=== PATIENT | male | born 1955 | race Caucasian/White ===

== ENCOUNTER 2020-06-18 10:34 | Outpatient (REF) | payer OTHER, SELFPAY | END 2020-06-18 10:35 | disposition home or self-care (01) | LOC: HO.LAB 10:34 | PROVIDERS: PCP Internal Medicine; Visit Provider Internal Medicine | DX: Z20.828 Contact with and (suspected) exposure to other viral communicable diseases (principal) | CPT/HCPCS: C9803; U0003 ==

== ENCOUNTER → 2021-04-17 08:18 | Outpatient (BNVA) | payer MEDICARE, SELFPAY | PROVIDERS: PCP Internal Medicine; Referring Provider Internal Medicine; Visit Provider Surgery | DX: K64.5 Perianal venous thrombosis (principal) | CPT/HCPCS: 46600; 99202 ==

== ENCOUNTER 2021-07-22 10:23 | Outpatient (REF) | payer MEDICARE, SELFPAY ==
[2021-07-22 10:26] LABS: MANUAL DIFF FLAG NO
[2021-07-22 11:27] LABS: Appearance Urine CLEAR; Color Urine STRAW; Glucose Urine UA NEG (NEG); Leukocyte Esterase Urine NEG (NEG); Nitrite Urine NEG (NEG); Urine Blood NEG (NEG); Urine Ketones NEG (NEG); Urine Protein NEG (NEG-TRACE)
[2021-07-22 11:38] LABS: Basophils Percent Auto 0.3 % (0-2); Eosinophils Absolute Auto 0.2 X10*3/uL (0.0-0.4); Eosinophils Percent Auto 2.2 % (0-4); Hemoglobin 15.8 g/dl (14.0-18.0); Imm Gran Abs Auto 0.03 X10*3/uL (0.00-0.03); Imm Gran Pct Auto 0.4 % (0.0-0.4); Lymphocytes Absolute Auto 2.2 X10*3/uL (1.2-4.9); Lymphocytes Percent Auto 29.9 % (20-40); Mean Corpuscular HGB Conc 33.6 g/dl (31.0-36.0); Mean Corpuscular Hemoglobin 29.3 pg (27.0-33.0); Mean Corpuscular Volume 87.2 fL (80.0-98.0); Mean Platelet Volume 12.2 fL (9.4-12.4); Monocytes Absolute Auto 0.5 X10*3/uL (0.1-1.2); Monocytes Percent Auto 7.3 % (2-11); Neutrophils Absolute Auto 4.4 x10*3/uL (2.0-8.3); Neutrophils Percent Auto 59.9 % (45-73); Platelet Count 199 X10*3/uL (160-400); Red Blood Count 5.39 X10*6/uL (4.60-5.80); Red Cell Distribution Width 12.8 % (11.0-16.0); White Blood Count 7.4 X10*3/uL (4.8-10.8)
[2021-07-22 12:22] LABS: PSA,Total (Free>4and<10) 5.08 ng/mL (0.00-4.00)
[2021-07-22 12:26] LABS: Alanine Aminotransferase 28 U/L (0-40); Albumin Level 4.5 g/dL (3.5-5.0); Alkaline Phosphatase 63 U/L (39-117); Anion Gap 15 (12-20); Aspartate Amino Transferase 25 U/L (5-37); Bilirubin Total 2.9 mg/dL (0.0-1.0); Blood Urea Nitrogen 10 mg/dL (9-16); Calcium 9.7 mg/dL (8.4-10.2); Carbon Dioxide 27 mmol/L (22-29); Chloride 101 mmol/L (96-108); Cholesterol 192 mg/dL; Estimated Glomerular Filt Rate > 60; Glucose Fasting 112 mg/dL (60-99); HDL Cholesterol 60 mg/dL; LDL Cholesterol Calculated 106 mg/dl; Potassium 3.6 mmol/L (3.3-5.1); Reflex LDLD? No; Sodium 139 mmol/L (135-145); Total Protein 7.2 g/dL (6.5-8.0); Triglycerides 132 mg/dL
[2021-07-23 11:11] LABS: Free Prostate Spec Ag 0.5 ng/mL; Percent Free Prostate Spec Ag 11 % (calc) (>25); Prostate Specific Ag Total 4.6 ng/mL (< OR = 4.0)
== END 2021-07-22 10:24 | disposition home or self-care (01) ==
LOC: HO.LNP 10:23
PROVIDERS: PCP Internal Medicine; Visit Provider Internal Medicine
DX: Z00.00 Encounter for general adult medical examination without abnormal findings (principal); Z12.5 Encounter for screening for malignant neoplasm of prostate; C61 Malignant neoplasm of prostate; E78.41 Elevated Lipoprotein(a); E78.00 Pure hypercholesterolemia, unspecified
CPT/HCPCS: 80053; 80061; 81003; 84153; 84154; 85025

== ENCOUNTER → 2022-02-23 10:40 | Outpatient (REF) | payer MEDICARE, SELFPAY ==
--- NOTE | ~2022-02-23 | NM_ITS ---
EXAMINATION: NM BONE SCAN OF THE WHOLE BODY CLINICAL INFORMATION: History of prostate cancer, presented with back pain and shoulder pain. PSA level is unknown. COMPARISON: Prior whole-body bone scan done on 10/30/2011. There are no recent scintigraphic or radiographic studies available for comparison. TECHNIQUE: Multiple gamma scintillation camera images of the whole body were performed 2.5 hours following the intravenous administration of 28 mCi Tc-99m MDP. FINDINGS: In the head, no abnormal radiotracer uptake is present. In the thoracic cage and upper extremities, mildly increased radiotracer uptake is noted at both shoulders, likely represent degenerative changes. In the spine, focal increased radiotracer activity is seen at the lower cervical spine bilaterally (right greater than left), new since prior study, likely represent degenerative changes. Radiographic correlation may be considered, if clinically appropriate. Mild increased radiotracer activities are noted at lower thoracic spine, shows progression since prior study, most consistent with degenerative spondylosis. In the pelvis, no abnormal radiotracer uptake is present. In the lower extremities, small focal increased radiotracer activity is noted within the right forefoot medially. Small focal increased radiotracer activity is also noted within the left midfoot. Radiographic correlation is recommended. Mildly increased radiotracer activities are present around both knees, most consistent with degenerative changes. No other definite bony abnormalities are noted. The urinary bladder and faint visualization of both kidneys are noted. SD/SD bone scan whole body IMPRESSION: 1. No definite scintigraphic evidence of metastatic disease, unchanged since prior remote available whole-body bone scan dated 10/30/2011. 2. Abnormal radiotracer uptake; however noted at the cervical and thoracic spine, new the cervical spine and source interval progression at the thoracic spine since the prior study, most consistent with multilevel degenerative spondylosis. Radiographic correlation may be considered for further confirmation. 3. Mild abnormal increased radiotracer uptake in both shoulders and both knees, most consistent with degenerative osteoarthrosis. 4. Focal abnormal increased uptakes seen at the right forefoot and left midfoot, may represent posttraumatic and/or degenerative changes. Clinical and radiographic correlation as appropriate may be considered for further clarification.
== END ==
LOC: HO.NUCMED 10:40
PROVIDERS: PCP Internal Medicine; Visit Provider Internal Medicine
DX: C61 Malignant neoplasm of prostate (principal)
CPT/HCPCS: 78306; A9503

== ENCOUNTER 2022-08-25 10:49 | Outpatient (REF) | payer MEDICARE, SELFPAY ==
[2022-08-25 10:53] LABS: MANUAL DIFF FLAG NO
[2022-08-25 11:27] LABS: Appearance Urine Clear; Color Urine Yellow; Glucose Urine UA Negative (Negative); Leukocyte Esterase Urine Negative (Negative); Nitrite Urine Negative (Negative); Urine Blood Negative (Negative); Urine Ketones Negative (Negative); Urine Protein Negative (Neg-Trace)
[2022-08-25 11:30] LABS: Basophils Percent Auto 0.4 % (0-2); Eosinophils Absolute Auto 0.2 X10*3/uL (0.0-0.4); Eosinophils Percent Auto 2.4 % (0-4); Hematocrit 46.4 % (42.0-52.0); Hemoglobin 15.7 g/dl (14.0-18.0); Imm Gran Abs Auto 0.03 X10*3/uL (0.00-0.03); Imm Gran Pct Auto 0.4 % (0.0-0.4); Lymphocytes Absolute Auto 2.8 X10*3/uL (1.2-4.9); Lymphocytes Percent Auto 34.1 % (20-40); Mean Corpuscular HGB Conc 33.8 g/dl (31.0-36.0); Mean Corpuscular Hemoglobin 28.7 pg (27.0-33.0); Mean Corpuscular Volume 84.8 fL (80.0-98.0); Mean Platelet Volume 11.8 fL (9.4-12.4); Monocytes Absolute Auto 0.7 X10*3/uL (0.1-1.2); Monocytes Percent Auto 8.8 % (2-11); Neutrophils Absolute Auto 4.4 x10*3/uL (2.0-8.3); Neutrophils Percent Auto 53.9 % (45-73); Platelet Count 180 X10*3/uL (160-400); Red Blood Count 5.47 X10*6/uL (4.60-5.80); Red Cell Distribution Width 13.1 % (11.0-16.0); White Blood Count 8.2 X10*3/uL (4.8-10.8)
[2022-08-25 11:31] LABS: Bacteria Urine None Seen (None Seen); Hyaline Casts Urine 0-2 /LPF (0-2); RBC Urine 0-2 /HPF (0-2); Squamous Epithelial Cell Urine 0-2 /HPF (0-2); WBC Urine 0-5 /HPF (0-5)
[2022-08-25 12:41] LABS: Alanine Aminotransferase 29 U/L (0-40); Albumin Level 4.3 g/dL (3.5-5.0); Alkaline Phosphatase 64 U/L (39-117); Anion Gap 11 (12-20); Aspartate Amino Transferase 24 U/L (5-37); Bilirubin Total 2.4 mg/dL (0.0-1.0); Blood Urea Nitrogen 18 mg/dL (9-16); Calcium 9.3 mg/dL (8.4-10.2); Carbon Dioxide 24 mmol/L (22-29); Chloride 104 mmol/L (96-108); Cholesterol 219 mg/dL; Estimated Glomerular Filt Rate > 60; Glucose Fasting 115 mg/dL (60-99); HDL Cholesterol 57 mg/dL; LDL Cholesterol Calculated 121 mg/dl; Potassium 4.1 mmol/L (3.3-5.1); Sodium 135 mmol/L (135-145); Total Protein 6.9 g/dL (6.5-8.0); Triglycerides 208 mg/dL
[2022-08-25 13:07] LABS: PSA,Total (Free>4and<10) 6.03 ng/mL (0.00-4.00)
[2022-08-26 09:28] LABS: Free Prostate Spec Ag 0.7 ng/mL; Percent Free Prostate Spec Ag 13 % (calc) (>25); Prostate Specific Ag Total 5.5 ng/mL (< OR = 4.0)
== END 2022-08-25 10:50 | disposition home or self-care (01) ==
LOC: HO.LNP 10:49
PROVIDERS: Visit Provider Internal Medicine
DX: Z00.00 Encounter for general adult medical examination without abnormal findings (principal); Z12.5 Encounter for screening for malignant neoplasm of prostate; E78.00 Pure hypercholesterolemia, unspecified
CPT/HCPCS: 80053; 80061; 81001; 84153; 84154; 85025

== ENCOUNTER 2023-03-19 11:25 | Day surgery (SDC) | payer MEDICARE, SELFPAY ==
--- NOTE | 2023-03-18 12:13 | HO.ANESPROP2 ---
HPI - Anesthesia Eval Consult details Narrative: 67yo M for Colonoscopy PMFSH Active Problems Active Problems: All Active Problems (Updated 05/16/21 @ 11:51 by Dodie Morejon RN) Hemorrhoid (Acute) Thrombosed hemorrhoids (Acute) BPH (benign prostatic hyperplasia) (Acute) Past Medical History Medical History (Updated 03/18/23 @ 12:56 by Lona Chowdhury, RN) Arthritis BPH (benign prostatic hyperplasia) History of prostate cancer IBS (irritable bowel syndrome) Numbness and tingling in right hand Thrombosed hemorrhoids Surgical History Surgical History History of cervical spinal surgery History of elbow surgery History of nasal surgery History of umbilical hernia repair Hx of abdominal surgery Hx of colonoscopy Hx of esophagogastroduodenoscopy Social History Social History Patient Tobacco Use Status: Never used Tobacco Use of substances other than those prescribed or required for medical reasons: Yes Substance Use Frequency: Occasionally Are you DNR?: No Advance Directives: No Advance Directives Information Provided: Yes Meds Allergies Allergy/AdvReac Type Severity Reaction Status Date / Time No Known Allergies Allergy Verified 03/19/23 11:38 [No Known Allergies*] Home Medications Medication Instructions Recorded Confirmed Last Taken Type cholestyramine (with sugar) 4 gram 4 g PO DAILY 04/11/21 03/19/23 Unknown History oral powder (Questran) finasteride 5 mg tablet (Proscar) 5 mg PO DAILY 04/11/21 03/19/23 Unknown History tamsulosin 0.4 mg capsule (Flomax) 0.4 mg PO BID 04/11/21 03/19/23 Unknown History celecoxib 200 mg capsule 200 mg PO BID 03/18/23 03/19/23 Unknown History Exam Exam Date and Time: March 18, 2023 1213 Assessment and Plan Assessment Anesthesia Assessment: Chart Reviewed
[2023-03-19 11:39] VITALS: BMI 25.7
[2023-03-19 12:00] VITALS: BP 159/105; PULSE 76; RESP 15; TEMP 36.6; O2SAT 95
[2023-03-19] MEDS: Lactated Ringers 1,000 ML 100 ML IVCONT (12:10)
[2023-03-19 13:31] VITALS: BP 131/89; PULSE 71; RESP 16; TEMP 36.1; O2SAT 99
--- NOTE | 2023-03-19 13:33 | P.BOP_ITS ---
Brief Operative Note Date of Service: 03/19/23 Pre-op diagnosis: Screening Post-op diagnosis: other (Polyps) Procedure: Colonoscopy to the anastomosis and SI with bx/removal of polyps x 2 Surgeon: Cody Israel Anesthesia: MAC Was an Bilingual Call Center Representative used for this Procedure?: No Estimated blood loss (mL): 2.0 Pathology: other (A. Colon polyps at 70cm, just distal to the anastomosis) Condition: stable Disposition: PACU
[2023-03-19 13:49] VITALS: BP 163/99; PULSE 66; RESP 18; TEMP 36.1; O2SAT 97
--- NOTE | 2023-03-19 14:30 | OP_ITS ---
DATE OF SERVICE: 03/19/2023 SURGEON: Cody Israel MD INDICATIONS: The patient presents for followup of personal history of colon polyps and need for colorectal cancer screening. Full consent has been obtained from him for this, including risks of bleeding and perforation. PREOPERATIVE DIAGNOSIS: POSTOPERATIVE DIAGNOSIS: PROCEDURE PERFORMED: Colonoscopy to the anastomosis and small bowel with biopsy and removal of polyps. ESTIMATED BLOOD LOSS: COMPLICATIONS: ANESTHESIA: Monitored anesthesia care. ASSISTANTS: SPECIMENS: PREOPERATIVE DIAGNOSES: Personal history of colon polyps and colorectal cancer screening. POSTOPERATIVE DIAGNOSES: Personal history of colon polyps and colorectal cancer screening, colon polyps, normal anastomosis, mild sigmoid diverticulosis, small internal hemorrhoids. DESCRIPTION OF PROCEDURE: The patient was placed in the left lateral decubitus position. The digital rectal exam revealed no abnormalities. The Olympus video pediatric colonoscope was entered into the rectum and advanced to the level of the anastomosis with abdominal wall pressure. I was able to cannulate the small bowel, which appeared normal. The scope was withdrawn back in the colon. The anastomosis appeared normal. The scope was slowly withdrawn assessing all mucosal surfaces carefully. Preparation was excellent. At 70 cm, which was just distal to the anastomosis, were 2 flat less than 5 mm polyps. These were both biopsied and completely removed with a cold biopsy forceps. I did not visualize any other polyps, colitis, nor angiodysplasia. There was a mild amount of sigmoid diverticulosis. In the rectum, scope was retroflexed visualizing small internal hemorrhoids, but no other pathology. The rectal mucosa appeared normal. The scope was straightened and withdrawn from the patient. He tolerated the procedure well and was returned to the recovery area in stable condition. IMPRESSION: 1. Small colon polyps, status post biopsy and removal. 2. Sigmoid diverticulosis. 3. Internal hemorrhoids. PLAN: I would recommend a repeat colonoscopy in 5 years for further screening purposes given the minimal findings in 2019 and today. He was advised not to use any aspirin or NSAIDs for 1 week. He was advised to continue his cholestyramine to help with his bile-induced diarrhea. He will otherwise see me on a p.r.n. basis. MD ADDY Nava/GUERLINE / [phone] MTDFerny
== END 2023-03-19 14:15 | disposition home or self-care (01) ==
PROVIDERS: PCP Internal Medicine; Visit Provider Internal Medicine
PROC: 0DJD8ZZ Inspection of Lower Intestinal Tract, Via Natural or Artificial Opening Endoscopic (ICD-10-PCS; CPT 45378; principal; 2023-03-19 12:30)
DX: Z12.11 Encounter for screening for malignant neoplasm of colon (principal); Z86.010 Personal history of colon polyps; D12.4 Benign neoplasm of descending colon; K57.30 Diverticulosis of large intestine without perforation or abscess without bleeding; K64.8 Other hemorrhoids; K90.89 Other intestinal malabsorption; N40.0 Benign prostatic hyperplasia without lower urinary tract symptoms; Z79.899 Other long term (current) drug therapy; Z85.46 Personal history of malignant neoplasm of prostate; Z90.49 Acquired absence of other specified parts of digestive tract; Z98.0 Intestinal bypass and anastomosis status; Z98.890 Other specified postprocedural states
CPT/HCPCS: 45380; 88305

== ENCOUNTER 2023-08-26 10:43 | Outpatient (REF) | payer MEDICARE, SELFPAY ==
[2023-08-26 10:46] LABS: MANUAL DIFF FLAG NO
[2023-08-26 11:21] LABS: Basophils Percent Auto 0.5 % (0-2); Eosinophils Absolute Auto 0.1 X10*3/uL (0.0-0.4); Eosinophils Percent Auto 2.1 % (0-4); Hematocrit 46.4 % (42.0-52.0); Hemoglobin 15.6 g/dl (14.0-18.0); Imm Gran Abs Auto 0.02 X10*3/uL (0.00-0.03); Imm Gran Pct Auto 0.3 % (0.0-0.4); Lymphocytes Absolute Auto 2.2 X10*3/uL (1.2-4.9); Lymphocytes Percent Auto 35.5 % (20-40); Mean Corpuscular HGB Conc 33.6 g/dl (31.0-36.0); Mean Corpuscular Hemoglobin 29.5 pg (27.0-33.0); Mean Corpuscular Volume 87.7 fL (80.0-98.0); Mean Platelet Volume 12.4 fL (9.4-12.4); Monocytes Absolute Auto 0.6 X10*3/uL (0.1-1.2); Monocytes Percent Auto 9.6 % (2-11); Neutrophils Absolute Auto 3.2 x10*3/uL (2.0-8.3); Platelet Count 175 X10*3/uL (160-400); Red Blood Count 5.29 X10*6/uL (4.60-5.80); Red Cell Distribution Width 13.2 % (11.0-16.0); White Blood Count 6.2 X10*3/uL (4.8-10.8)
[2023-08-26 11:23] LABS: Appearance Urine Clear; Color Urine Yellow; Glucose Urine UA Negative (Negative); Leukocyte Esterase Urine Negative (Negative); Nitrite Urine Negative (Negative); Urine Blood Negative (Negative); Urine Ketones Negative (Negative); Urine Protein Negative (Neg-Trace)
[2023-08-26 11:28] LABS: Bacteria Urine None Seen (None Seen); Hyaline Casts Urine 0-2 /LPF (0-2); RBC Urine 0-2 /HPF (0-2); Squamous Epithelial Cell Urine 0-2 /HPF (0-2); WBC Urine 0-5 /HPF (0-5)
[2023-08-26 11:40] LABS: Alanine Aminotransferase 22 U/L (0-40); Albumin Level 4.3 g/dL (3.5-5.0); Alkaline Phosphatase 72 U/L (39-117); Anion Gap 11 (12-20); Aspartate Amino Transferase 23 U/L (5-37); Bilirubin Total 2.3 mg/dL (0.0-1.0); Blood Urea Nitrogen 13 mg/dL (9-16); Calcium 9.6 mg/dL (8.4-10.2); Carbon Dioxide 30 mmol/L (22-29); Chloride 102 mmol/L (96-108); Cholesterol 210 mg/dL (<200); Estimated Glomerular Filt Rate > 60; Glucose Random 121 mg/dL (60-115); HDL Cholesterol 54 mg/dL (>40); LDL Cholesterol Calculated 123 mg/dL (<100); Potassium 3.7 mmol/L (3.3-5.1); Sodium 139 mmol/L (135-145); Total Protein 7.2 g/dL (6.5-8.0); Triglycerides 166 mg/dL (<150)
[2023-08-27 12:24] LABS: Free Prostate Spec Ag 0.5 ng/mL; Percent Free Prostate Spec Ag 8 % (calc) (>25); Prostate Specific Ag Total 6.3 ng/mL (< OR = 4.0)
== END 2023-08-26 10:44 | disposition home or self-care (01) ==
LOC: HO.LNP 10:43
PROVIDERS: Visit Provider Internal Medicine
DX: Z00.00 Encounter for general adult medical examination without abnormal findings (principal); Z12.5 Encounter for screening for malignant neoplasm of prostate; E78.00 Pure hypercholesterolemia, unspecified
CPT/HCPCS: 80053; 80061; 81001; 84153; 84154; 85025

== ENCOUNTER 2024-03-07 10:54 | Outpatient (AMB) | payer MEDICARE, SELFPAY ==
--- NOTE | 2024-03-07 11:08 | MHC.OFFVIS ---
Intake Visit Reasons: Re-Establish care- Prostate CA/BPH(PVU Transfer) Intake Note: Patient is present for RE-ESTABLISH CARE-PROSTATE CA/BPH Urology Medication:TAMSULOSIN,FINASTERIDE Antibiotic Allergy:NONE Blood Thinner:NONE Infrastructure Analyst Required: No Allergies No Known Allergies [No Known Allergies*] Allergy (Verified 03/07/24 11:11) HPI Comments Details: Evelio is a pleasant male. He is a patient of Dr. Ramos. He is seen for the following urologic conditions - prostate cancer Prostate cancer PSA diagnosis 12 Has been on active surveillance Currently treated with finasteride and tamsulosin Multiple biopsies MRI has been performed which showed confined disease - 03/27 prostate MRI PI-RADS 3 He would like to continue with current approach Would recommend interval imaging and biopsy PSA - 04/01 7.4 %F 8 PFSH Medical History (Updated 03/07/24 @ 12:04 by Eze Delgado MD) IBS (irritable bowel syndrome) Numbness and tingling in right hand History of prostate cancer Arthritis Thrombosed hemorrhoids BPH (benign prostatic hyperplasia) Surgical History Hx of esophagogastroduodenoscopy History of cervical spinal surgery Hx of colonoscopy History of elbow surgery History of nasal surgery History of umbilical hernia repair Hx of abdominal surgery Social History Patient Tobacco Use Status: Never used Tobacco Review of Systems Const Denies chills and Denies fever(s) Card Reports no additional complaints and Denies syncope Resp Denies cough GI Denies abdominal pain and Denies heartburn Reports as per HPI and Denies change in libido Neuro Denies syncope Psych Denies change in libido Endo Denies change in libido Physical Exam Const General: cooperative, healthy appearing, comfortable and no acute distress Orientation/consciousness: patient oriented x3 HEENT Face and sinus: Yes normal facial exam Mouth: moist mucous membranes Neck Neck: Yes normal visual inspection, Yes full ROM and Yes trachea midline Chest Chest palpation & inspection: normal inspection of the chest Resp Effort & Inspection: normal respiratory effort, able to speak in complete sentences and no respiratory distress GI Inspection: Yes normal to inspection Back/Spine/Pelvis Cervical Spine: normal cervical lordosis Thoracic/Lumbar Spine: thoracic and lumbar spine normal to inspection Skin General skin exam: no rashes or lesions noted Neuro General: patient oriented x3, gait normal, tone normal and moves all extremities Extrem General: Yes normal to inspection and Yes capillary refill normal Results AMB Urinalysis, Automated UA Leukoctes 0 Joni/uL Last Edit by BARBARA Beaulieu on 03/07/24 11:45 UA Nitrite Negative Last Edit by Sarbjit Stover CCM on 03/07/24 11:45 UA Urobilinogen 0.2 mg/dL Last Edit by Sarbjit Stover CCM on 03/07/24 11:45 UA Protein 15 mg/dL Last Edit by Sarbjit Stover [facility] on 03/07/24 11:45 UA pH 6.0 Last Edit by Sarbjit Stover [facility] on 03/07/24 11:45 UA Blood 0 Mike/uL Last Edit by Sarbjit Stover [facility] on 03/07/24 11:45 UA Specific [place] 1.015 Last Edit by Sarbjit Stover [facility] on 03/07/24 11:45 UA Ketone Negative Last Edit by Sarbjit Stover [facility] on 03/07/24 11:45 UA Bilirubin 0 mg/dL Last Edit by Sarbjit Stover [facility] on 03/07/24 11:45 UA Glucose 0 mg/dL Last Edit by Sarbjit Stover [facility] on 03/07/24 11:45 Results Reviewed Results Reviewed: Laboratory Last Values Urine pH (Auto) 6.0 03/07/24 11:44 Specific [place] (Auto) 1.015 03/07/24 11:44 Urine Protein (Auto) 15 mg/dL 03/07/24 11:44 Glucose (UA)(Auto) 0 mg/dL 03/07/24 11:44 Urine Ketones (Auto) Negative 03/07/24 11:44 Urine Blood (Auto) 0 Mike/uL 03/07/24 11:44 Urine Nitrite (Auto) Negative 03/07/24 11:44 Urine Bilirubin (Auto) 0 mg/dL 03/07/24 11:44 Urine Urobilinogen (Auto) 0.2 mg/dL 03/07/24 11:44 Leukocyte Esterase (Auto) 0 Joni/uL 03/07/24 11:44 Assessment & Plan Assessment & Plan (1) Prostate cancer: Code(s): C61 - Malignant neoplasm of prostate Category: Medical Plan Six-month follow-up PSA Interval imaging Orders: Orders AMB Urinalysis Automated 03/07/24 Z13.9 - Encounter for screening, unspecified Patient Instructions: Imaging studies, laboratory and physical exam results were discussed and reviewed in detail. No major barriers to patient understanding were identified. An opportunity to ask questions regarding the treatment plan was provided. All questions were answered. The patient expressed understanding and agreement with the above treatment plan. The patient is aware they should contact our office by phone for worsening of their current condition or the appearance of new urologic symptoms. Compliance is encouraged with any medications and followup testing that is ordered. It is a privilege to participate in the urologic care of your patient. If you have any questions or concerns regarding treatment for the above conditions, or other urologic issues, please do not hesitate to contact me. The office telephone contact is [phone]. This note is constructed using voice recognition software. While every effort has been made to ensure accuracy shank pinner errors may have been included. Yours sincerely, Dr Eze Delgado MD, [facility] - Urology Providers of Expert, Compassionate Care for the Genitourinary System Coding Level of Care Code New Pt Level 4 (44614) Diagnoses Prostate cancer C61
== END 2024-03-07 12:12 | disposition home or self-care (01) ==
PROVIDERS: PCP Internal Medicine; Visit Provider Urology
DX: C61 Malignant neoplasm of prostate (principal)
CPT/HCPCS: 99204

== ENCOUNTER → 2024-03-07 10:54 | Outpatient (BNVA) | payer MEDICARE, SELFPAY | PROVIDERS: PCP Internal Medicine; Visit Provider Urology | DX: C61 Malignant neoplasm of prostate (principal) | CPT/HCPCS: 81003; 99202 ==

== ENCOUNTER 2024-03-09 09:48 | Outpatient (REF) | payer MEDICARE, SELFPAY ==
[2024-03-09 11:28] LABS: Prostate Specific Antigen 7.43 ng/mL (<0.05-4.0)
== END 2024-03-09 09:49 | disposition home or self-care (01) ==
LOC: HO.LAB 09:48
PROVIDERS: PCP Internal Medicine; Visit Provider Urology
DX: C61 Malignant neoplasm of prostate (principal); Z12.5 Encounter for screening for malignant neoplasm of prostate
CPT/HCPCS: 36415; 84153

== ENCOUNTER 2024-08-29 10:49 | Outpatient (REF) | payer MEDICARE, SELFPAY ==
[2024-08-29 10:52] LABS: MANUAL DIFF FLAG NO
[2024-08-29 11:01] LABS: Basophils Percent Auto 0.4 % (0-2); Eosinophils Absolute Auto 0.1 X10*3/uL (0.0-0.4); Hematocrit 47.9 % (42.0-52.0); Hemoglobin 16.2 g/dl (14.0-18.0); Imm Gran Abs Auto 0.02 X10*3/uL (0.00-0.03); Imm Gran Pct Auto 0.3 % (0.0-0.4); Lymphocytes Absolute Auto 2.2 X10*3/uL (1.2-4.9); Lymphocytes Percent Auto 32.3 % (20-40); Mean Corpuscular HGB Conc 33.8 g/dl (31.0-36.0); Mean Corpuscular Volume 85.8 fL (80.0-98.0); Monocytes Absolute Auto 0.5 X10*3/uL (0.1-1.2); Monocytes Percent Auto 7.6 % (2-11); Neutrophils Percent Auto 57.4 % (45-73); Platelet Count 188 X10*3/uL (160-400); Red Blood Count 5.58 X10*6/uL (4.60-5.80); Red Cell Distribution Width 13.2 % (11.0-16.0); White Blood Count 6.9 X10*3/uL (4.8-10.8)
[2024-08-29 11:31] LABS: Alanine Aminotransferase 21 U/L (0-40); Albumin Level 4.5 g/dL (3.5-5.0); Alkaline Phosphatase 71 U/L (39-117); Anion Gap 11 (12-20); Aspartate Amino Transferase 28 U/L (5-37); Bilirubin Total 2.4 mg/dL (0.0-1.0); Blood Urea Nitrogen 13 mg/dL (9-16); Calcium 8.9 mg/dL (8.4-10.2); Carbon Dioxide 29 mmol/L (22-29); Chloride 104 mmol/L (96-108); Cholesterol 187 mg/dL (<200); Estimated Glomerular Filt Rate > 60; Glucose Fasting 108 mg/dL (60-99); HDL Cholesterol 57 mg/dL (>40); LDL Cholesterol Calculated 107 mg/dL (<100); Potassium 3.6 mmol/L (3.3-5.1); Sodium 140 mmol/L (135-145); Total Protein 7.7 g/dL (6.5-8.0); Triglycerides 116 mg/dL (<150)
[2024-08-29 11:39] LABS: PSA,Total (Free>4and<10) 7.27 ng/mL (0.00-4.00)
--- OUTSIDE RECORDS SUMMARY | 2024-08-29 12:25 | XMS_ITS ---
Author Organization [facility] Address [address] [place] [address] Care Team Providers Care Computer Security Specialist Name Role Phone Rachel PARKINSON, Margarito Primary Care Provider uJstin Burnham Unavailable [phone] Encounters Encounter Location Date Provider Diagnosis [facility] [address] [place] [address] 05/01/2024 Justin Galdamez Plan Of Treatment No Information Progress Notes * Dani ESPINODOB:1955 (68 yo M)Acc No.[id number]:05/01/2024 Progress Notes Patient:?Dani ESPINO Provider:?Justin Galdamez DPM :1955???Age:68 Y???Sex:Male Bharath e:05/01/2024 Address:[address] [place] [address] , [address], [facility] Pcp:Margarito Ramos MD Subjective: * Chief Complaints: * ??? * Medical History:? Objective: * Vitals:? Assessment: Plan: * Treatment: * Images: * The named appointment provid er may or may not be the originator of this progress note, and it is not deemed complete until electronically signed by the appointment provider. Sign off status: Pending * Provider:?Justin Galdamez DPM Date:? 024 Generated for Carolina perez/Alejandro/eTransmitting on:?08/29/2024 12:25 PM EST
--- OUTSIDE RECORDS SUMMARY | 2024-08-29 12:25 | XMS_ITS | Clinical Summary ---
Author Organization [facility] Address [address] [place] [address] Care Team Providers Care Entry Driver Operator Name Role Phone Unavailable Primary Care Provider Unavailabl e Social History Tobacco Use Types Packs/Day Years Used Date Smoking Tobacco: Never Assessed Sex and Gender Information Value Date Recorded Sex Assigned at Not on file Gender Identity Not on file Sexual Orientation Not on file Plan of Treatment Health Maintenance Due Date Last Done Comments Hepatitis C Virus Screening 1955 DTaP/Tdap/Td Vaccines (1 - Tdap) 11/24/1974 Pneumococcal Vaccines 50+ (1 of 1 - PCV) 11/24/2005 Zoster (Shingles) Vaccine (1 of 2) 11/24/2005 COVID-19 Vaccine ( - 2023-2 5 season) 2024 RSV Vaccine 60 years and old er and Patients (1 - 1-dose 75+ series) 11/24/2030 Hepatitis B Vaccines Aged Out No long er eligible based on patient's age to complete this topic
--- OUTSIDE RECORDS SUMMARY | 2024-08-29 12:25 | XMS_ITS ---
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 Generated for Carolina perez/Alejandro/eTransmitting on:?08/29/2024 12:25 PM EST
--- OUTSIDE RECORDS SUMMARY | 2024-08-29 12:25 | XMS_ITS | Patient Health Record ---
Author Organization [facility] Address [address] [place] [address] Care Team Providers Care Gunner'S Mate M Name Role Phone Margarito Ramos MD Primary Care Provider Justin Burnham [phone] Reason For Referral No Information Encounters Encounter Location Date Provider Diagnosis [facility] [address] [place] [address] 04/04/2024 Justin Galdamez Plan Of Treatment No Information Insurance Providers Payer Name Payer Address Payer Phone Subscriber Number Group Number Insured Name Patient Relationship to Insured Coverage Start Date Coverage End Date [employer] Medicare [id number] [address] [address] [place] [address] [id number] Dani Rosas Self - patient is the insured
[2024-08-30 17:53] LABS: Free Prostate Spec Ag 0.7 ng/mL; Percent Free Prostate Spec Ag 9 % (calc) (>25); Prostate Specific Ag Total 7.4 ng/mL (< OR = 4.0)
== END 2024-08-29 10:50 | disposition home or self-care (01) ==
LOC: HO.LNP 10:49
PROVIDERS: Visit Provider Internal Medicine
DX: E78.00 Pure hypercholesterolemia, unspecified (principal); Z12.5 Encounter for screening for malignant neoplasm of prostate
CPT/HCPCS: 80053; 80061; 84153; 84154; 85025

== ENCOUNTER 2024-09-05 15:21 | Outpatient (REF) | payer MEDICARE, SELFPAY ==
[2024-09-05 15:27] LABS: Appearance Urine Clear; Color Urine Yellow; Glucose Urine UA Negative (Negative); Leukocyte Esterase Urine Negative (Negative); Nitrite Urine Negative (Negative); PH 6.5 (5.0-9.0); Specific Gravity - Urine 1.015 (1.005-1.025); Urine Blood Negative (Negative); Urine Ketones Negative (Negative); Urine Protein Negative (Neg-Trace)
[2024-09-05 15:30] LABS: Bacteria Urine None Seen (None Seen); Hyaline Casts Urine 0-2 /LPF (0-2); RBC Urine 0-2 /HPF (0-2); Squamous Epithelial Cell Urine 0-2 /HPF (0-2); WBC Urine 0-5 /HPF (0-5)
--- OUTSIDE RECORDS SUMMARY | 2024-09-05 16:19 | XMS_ITS ---
Author Organization [facility] Address [address] [place] [address] Care Team Providers Care Clinical Nursing Coordinator Name Role Phone Rachel PARKINSON, Margarito Primary Care Provider Justin Burnham Unavailable [phone] Encounters Encounter Location Date Provider Diagnosis [facility] [address] [place] [address] 05/01/2024 Justin Galdamez Plan Of Treatment No Information Progress Notes * Dani ESPINODOB:1955 (68 yo M)Acc No.[id number]:05/01/2024 Progress Notes Patient:?Dani ESPINO Provider:?Justin Galdamez DPM :1955???Age:68 Y???Sex:Male Bharath e:05/01/2024 Address:[address] [place] [address] , [address], [facility] Pcp:Margarito Ramos MD Subjective: * Chief Complaints: * ??? * Medical History:? Objective: * Vitals:? Assessment: Plan: * Treatment: * Images: * The named appointment provid er may or may not be the originator of this progress note, and it is not deemed complete until electronically signed by the appointment provider. Sign off status: Pending * Provider:?Justin Galdamez DPM Date:? 024 Generated for Shawi chris/Alejandro/eTransmitting on:?09/05/2024 04:18 PM EST
--- OUTSIDE RECORDS SUMMARY | 2024-09-05 16:19 | XMS_ITS ---
Author Organization Margarito Ramos MD Address [address] [place], [place] [id number] Care Team Providers Care Reclamation Kettle Tender Name Role Phone Margarito Ramos Primary Care Provider Results Component Value Reference Range Notes Complete Blood Count Auto Di ff Reviewed date:08/29/2024 04:38:19 PM Interpretation: Performing Lab:[facility], [address] [place] [phone] Notes/Report: White Blood Count 6.9 4.8-10.8 X10*3/uL Red Blood Count 5.58 4.60-5.80 X10*6/uL Hemoglobin 16.2 14.0-18.0 g/dl Hematocrit 47.9 42.0-52.0 % Mean Corpuscular Volume 85.8 80.0-98.0 fL Mean Corpuscular Hemoglobin 29.0 27.0-33.0 pg Mean Corpuscular HGB Conc 33.8 31.0-36.0 g/dl Red Cell Distribution Width 13.2 11.0-16.0 % Platelet Count 188 160-400 X10*3/uL Mean Platelet Volume 12.0 9.4-12.4 fL Neutrophils Percent Auto 57.4 45-73 % Imm Gran Pct Auto 0.3 0.0-0.4 % Lymphocytes Percent Auto 32.3 20-40 % Monocytes Percent Auto 7.6 2-11 % Eosinophils Percent Auto 2.0 0-4 % Basophils Percent Auto 0.4 0-2 % NRBC Pct Auto 0.0 0.0-0.2 /100WBC Neutrophils Absolute Auto 4.0 2.0-8.3 x10*3/u L Imm Gran Abs Auto 0.02 0.00-0.03 X10*3/uL Lymphocytes Absolute Auto 2.2 1.2-4.9 X10*3/u L Monocytes Absolute Auto 0.5 0.1-1.2 X10*3/uL Eosinophils Absolute Auto 0.1 0.0-0.4 X10*3/u L Basophils Absolute Auto 0.0 0.0-0.2 X10*3/uL NRBC Abs Auto 0.000 0.0-0.012 X10*3/uL Comprehensive [place]. Panel Fa st Reviewed date:08/29/2024 04:31:00 PM Interpretation: Performing Lab:[facility], [address] [place] [phone] Notes/Report: Sodium 140 135-145 mmol/L Potassium 3.6 3.3-5.1 mmol/L Slight Hemoly sis.Interpret result with caution. Chloride 104 96-108 mmol/L Carbon Dioxide 29 22-29 mmol/L Anion Gap 11 12-20 Blood Urea Nitrogen 13 9-16 mg/dL Creatinine 0.91 0.5-1.4 mg/dL Estimated Glomerular Filt Rate > 60 Chronic Kidney Disease: Estimated GFR < 60 mL/min/1.73m2 Severe Kidney Disease: Estimated GFR < 15 mL/min/1.73m2 Glucose Fasting 108 60-99 mg/dL A fasting glucose from 100-125 mg/dl is considered impaired (pre-diabetes). Calcium 8.9 8.4-10.2 mg/dL Bilirubin Total 2.4 0.0-1.0 mg/dL Slight Icte brandi. Aspartate Amino Transferase 28 5-37 U/L Slight Hemolysis.Interpret result with caution. Alanine Aminotransferase 21 0-40 U/L Total Protein 7.7 6.5-8.0 g/dL Albumin Level 4.5 3.5-5.0 g/dL Alkaline Phosphatase 71 39-117 U/L Lipid Panel Reviewed date:08/29/2024 12:37:39 PM Interpretation: Performing Lab:[facility], [address] [place] [phone] Notes/Report: Triglycerides 116 <150 mg/dL Desirable Triglyceride: less than 150 mg/dL Borderline High Triglyceride 150-199 mg/dL High Triglyceride: 200-499 mg/dL Very High Triglyceride: greater than or equal to 5OO mg/dL Cholesterol 187 <200 mg/dL Desirable Cholesterol: less than 200 mg/dL Borderline High Cholesterol: 200-239 mg/dL High Cholesterol: greater than 239 mg/dL LDL Cholesterol Calculated 107 <100 mg/dL Desirable LDL: less than 100 mg/dL Near Optimal/Above Optimal LDL: 110-129 mg/dL Borderline High LDL: 130-159 mg/dL High LDL: 160-189 mg/dL Very High LDL: greater than or equal to 190 mg/dL HDL Cholesterol 57 >40 mg/dL Desirable HDL: greater than 40 mg/dL Note: This HDL assay may give artificially low results in patients with liver disease. PSA,Total (Free>4and<10) Reviewed date:08/29/2024 12:38:40 PM Interpretation: Performing Lab:[facility], [address] [place] [phone] Notes/Report: PSA,Total (Free>4and<10) 7.27 0.00-4.00 ng/mL PSA methodology: Parada Alinity i Chemiluminescent Microparticle Immunoassay (CMIA) REASON FOR VISIT FASTING LABS Encounters Encounter Location Date Provider Diagnosis Margarito Ramos MD [address] [place], [place] [phone] 08/29/2024 Margarito Ramos Blood tests for routine general physical examination Z00.00 and Pure hypercholesterolemia , unspecified E78.00 Assessments Encounter Date Diagnosis (ICD Code) Assessment Notes Treatment Notes Treatment Clinical Notes Section Notes 08/29/2024 Blood tests for routine general physical examination (ICD-10 - Z00.00) 08/29/2024 Pure hypercholesterol emia, unspecified (ICD-10 - E78.00) Plan Of Treatment Pending Test Test Name [facility] 08/29/2024 Next Appt Details Provider Name:Margarito Phoenix ier, 08/31/2025 07:45:00 AM, [address], [address], [place], [phone], Provider Name:Margarito Phoenix ier, 09/07/2025 01:00:00 PM, [address] [facility], [address], [place], [place], [phone], Progress Notes * Dani ESPINO FDOB:[birth year] (68 yo M)Acc No.[id number]:08/29/2024 Progress Note Patient:?Dani ESPINO Provider:?Margarito Ramos MD :1955???Age:68 Y???Sex:Male Bharath e:08/29/2024 Address:[address] [place], [place] [id number] Subjective: * Chief Complaints: * ???1. FASTING LABS. * Medical History:? Objective: * Vitals:? Assessment: * Assessment: 1.?Blood tests for routine g eneral physical examination - Z00.00 (Primary)???2.?Pure hypercholesterolemia, unspecified - E78.00??? Plan: * Treatment: 2.?Pure hypercholesterolemia , unspecified?LAB: [facility]Micro w/rflx Cult ?LAB: Complete Blood Count Auto Diff (Collection Date & Time - 08/29/2024 07:45 AM) ?LAB: Comprehensive [place]. Panel Fast (Collection Date & Time - 08/29/2024 07:45 AM) ?LAB: Lipid Panel (Collection Date & Time - 08/29/2024 07:45 AM) ?LAB: PSA,Total (Free>4and<10) (Collection Date & Time - 08/29/2024 07:45 AM) * Procedure Codes:?15540 VENIP UNCT, ROUTINE* * * The named appointment provid er may or may not be the originator of this progress note, and it is not deemed complete until electronically signed by the appointment provider. Sign off status: Pending * Provider:?Margarito Ramos MD Date:?0 08/29/2024 Generated for Carolina perez/Alejandro/lAex on:?09/05/2024 04:19 PM EST
--- OUTSIDE RECORDS SUMMARY | 2024-09-05 16:19 | XMS_ITS | Patient Health Record ---
Author Organization [facility] Address [address] [place] [address] Care Team Providers Care Phys Therapist Name Role Phone Margarito Ramos MD Primary Care Provider Cody Hackett Unavailable [phone] ALLERGIES No Known Allergies REASON FOR REFERRAL No Information MEDICATIONS Medication SIG (Take, Route, Frequency, Duration) Notes Start Date End Date Status Cholestyramine 4 GM/DOSE USE 1/4 TO 1/2 SCOOP MIXED IN A GLASS OF WATER OR ORANGE JUICE ORALLY 1-2X FOR DIARRHEA 30 DAY(S) for 30 Active Celecoxib 200 MG TAKE 1 CAPSULE BY [facility] TWICE DAILY Oral for 90 Active Finasteride 5 MG 1 tablet Orally Once a day Active Tamsulosin HCl 0.4 MG 1 capsule Orally Once a day Active IMMUNIZATIONS Vaccine Route Administration Date Status Comme nts Influenza Unknown 05/09/2018 Administered Influenza Unknown 05/10/2019 Administered Influenza Unknown 05/26/2022 Administered SOCIAL HISTORY Sex Assigned At : Social History Observation Description Sex Assigned At Unknown Alcohol Screen Question Answer Notes Did you have a drink contain ing alcohol in the past year? Yes How often did you have a dri nk containing alcohol in the past year? 2 to 3 times a week (3 points) How many drinks did you have on a typical day when you were drinking in the past year? 1 or 2 drinks (0 point) How often did you have 6 or more drinks on one occasion in the past year? Never (0 point) Points 3 Interpretation Negative PROBLEMS Problem Type ICD Code Onset Dates Problem Status W/U Status Risk SNOMED Code Notes Problem Irregular bowel habits (R19.8) Active confirmed 780957192 Problem Irritable bowel syndrome with both constipation and diarrhea (K58.2) Active confirmed 63298025 Problem Encounter for screening for malignant neoplasm of colon (Z12.11) Active confirmed 654996147 Problem Encounter for screening for malignant neoplasm of rectum (Z12.12) Active confirmed Screening fo r malignant neoplasm of rectum (110727665) Problem Abdominal pain, epigastric (R10.13) Active confirmed 58407429 Problem Villous adenoma of colon (D37.4) Active confirmed 798684107 Problem Hx of adenomatous colonic polyps (Z86.010) Active confirmed 701012964 Problem Heme + stool (R19.5) Active confirmed 71892984 Problem Diarrhea, unspecified type (R19.7) Active confirmed 14387171 Problem 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 confirmed 69658147 Problem Hx of Billroth II operation (Z98.0) Active confirmed History of gastrointestinal tract bypass (054340332) Problem Diverticulosis of colon (K57.30) Active confirmed Diverticulosi s of colon (916173131) PLAN OF TREATMENT Pending Test Test Name Order Date XR ABD UPRIGHT AND CHEST 04/04/2020 STOOL WBC 04/04/2020 Future Test Test Name Order Date UPPER GI ENDOSCOPY 08/11/2016 COLONOSCOPY 08/11/2016 COLONOSCOPY 11/10/2016 COLONOSCOPY 09/08/2018 COLONOSCOPY 01/01/2023 Insurance Providers Payer Name Payer Address Payer Phone Subscriber Number Group Number Insured Name Patient Relationship to Insured Coverage Start Date Coverage End Date [facility] [employer] [address] [place] [address] [id number] MARK ANTHONY RODRIGUEZ Self - patient is the insured MEDICAL (GENERAL) HISTORY Medical History History ICD Code Denies GA,DM,CVA,Lung disease,renal dise ase BPH EGD in 09/2016-small hiatal hernia--- no esophagitis IBS--improved with Metamucil and antibod ies for celiac disease were negative Screening colonoscopy in 09/10 017 revealed a sigmoid tubular adenoma that was removed, and a 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 Presley--path showed only tubulovillous adenomaat the [facility] 12/2016
--- OUTSIDE RECORDS SUMMARY | 2024-09-05 16:19 | XMS_ITS ---
Author Organization [facility] Address [address] [place] [address] Care Team Providers Care Firmware Architect Name Role Phone Margarito Ramos MD Primary Care Provider Cody Hackett Unavailable [phone] REASON FOR VISIT screening,hx polyps,villous adenoma PROBLEMS Problem Type ICD Code Onset Dates Problem Status W/U Status Risk SNOMED Code Notes Problem Hx of Billroth II operation (Z98.0) Active confirmed History of gastrointestinal tract bypass (709031886) Problem Diverticulosis of colon (K57.30) Active confirmed Diverticulosi s of colon (787099373) Encounters Encounter Location Date Provider Diagnosis [facility] [address] [place], [place] [phone] 03/19/2023 Cody Israel Colon cancer scree travis Z12.11 ; Colon polyps K63.5 ; Hx of Billroth II operation Z98.0 and Diverticulosis of colon K57.30 ASSESSMENTS Encounter Date Diagnosis Assessment Notes Treatment Notes Treatment Clinical Notes 03/19/2023 Colon cancer screening (ICD-10 - Z12.11) 03/19/2023 Colon polyps (ICD-10 - K63.5) 03/19/2023 Hx of Billroth II operation (ICD-10 - Z98.0) 03/19/2023 Diverticulosis of colon (ICD-10 - K57.30) PLAN OF TREATMENT No Information
--- OUTSIDE RECORDS SUMMARY | 2024-09-05 16:19 | XMS_ITS ---
Author Organization Margarito Ramos MD Address [address] [place] [phone] Care Team Providers Care Line Technician Name Role Phone RachelTobyn Primary Care Provider REASON FOR VISIT ins referral Encounters Encounter Location Date Provider Diagnosis Margarito Ramos MD [address] [facility] [address] [place] [phone] 08/29/2024 Margarito Ramos Plan Of Treatment Next Appt Details Provider Name:Margarito saucedo, 08/31/2025 07:45:00 AM, [address] [place] [address], [address] [place] [address], [phone], Provider Name:Margarito saucedo, 09/07/2025 01:00:00 PM, [address] [place] [address], [address] [place] [address], [phone], Progress Notes * Dani ESPINO FDOB:[birth year] (68 yo M)Acc No.[id number]:08/29/2024 Patient:?Dani ESPINO :1955???Age:68 Y???Sex:Male Address:[address] [place] [address] [place], [address] * true * Date:? Generated for Carolina perez/Alejandro/Larissasmitting on:?09/05/2024 04:18 PM EST
--- OUTSIDE RECORDS SUMMARY | 2024-09-05 16:20 | XMS_ITS ---
Author Organization Margarito Ramos MD Address [address] [place], [place] [id number] Care Team Providers Care Sales Manager Prearranged Funerals Name Role Phone RachelTobyn Primary Care Provider Allergies No Known Allergies Results Component Value Reference Range Notes UA ClnCatch+Micro w/rflx Cul t (Not yet reviewed by provider) Interpretation: Performing Lab:[facility], [address] [place] [id number] Notes/Report: Urine, Clean Catch Color Urine Yellow Appearance Urine Clear PH 6.5 5.0-9.0 Glucose Urine UA Negative Negative mg/dL Urine Blood Negative Negative Specific [place] - Urine 1.015 1.005-1.025 Urine Protein Negative Neg-Trace mg/dL Urine Ketones Negative Negative mg/dL Nitrite Urine Negative Negative Leukocyte Esterase Urine Negative Negative RBC Urine 0-2 0-2 /HPF WBC Urine 0-5 0-5 /HPF Squamous Epithelial Cell Urine 0-2 0-2 /HPF Bacteria Urine None Seen None Seen Hyaline Casts Urine 0-2 0-2 /LPF REASON FOR VISIT annual/ see back PSA Medications Medication SIG (Take, Route, Frequency, Duration) Notes Start Date End Date Status Ventolin HFA 108 (90 Base) MCG/ACT 2 puffs as needed Inhalation every 4 hrs for 30 days 08/17/2019 Not-Taking Naproxen 500 MG 1 tablet with food o r milk as needed Orally every 12 hrs for 30 days Not-Taking Tamsulosin HCl 0.4 MG 1 capsule Orally O nce a day Active Cholestyramine 4 GM/DOSE 1 scoop Orally Once a day for 30 day(s) Active Finasteride 1 MG 1 tablet Orally Once a day Active CeleBREX 200 MG 1 capsule with food Orally twice a day Active Social History Tobacco Use: Social History Observation Description Date Details (start date - stop date) Never Smoker NA - NA Tobacco Use/Smoking Question Answer Notes Patient is a nonsmoker Additional Findings: Tobacco Non-User Cu rrent non-smoker, currently using no form of tobacco Alcohol Screen Question Answer Notes Did you have a drink contain ing alcohol in the past year? Yes How often did you have a dri nk containing alcohol in the past year? Monthly or less (1 point) How many drinks did you have on a typical day when you were drinking in the past year? 1 or 2 drinks (0 point) How often did you have 6 or more drinks on one occasion in the past year? Never (0 point) Points 1 Interpretation Negative Vital Signs Blood pressure systolic 132 mm Hg 09/05/19 25 Blood pressure diastolic 80 mm Hg 025 Height 68 in 09/05/2024 Weight 169 lbs 09/05/2024 BMI 25.69 kg/m2 09/05/2024 weight is down 4 pounds [facility] 01-18-24 Encounters Encounter Location Date Provider Diagnosis Margarito Ramos MD [address] [place] [address] Drive [address] [place], [place] [phone] 09/05/2024 Margarito Ramos Benign prostatic hyperplasia without lower urinary tract symptoms N40.0 ; Annual physical exam Z00.00 ; Pure hypercholesterolemia , unspecified E78.00 ; CA of prostate C61 ; Colon cancer screening Z12.11 and Depression screening Z13.31 Assessments Encounter Date Diagnosis (ICD Code) Assessment Notes Treatment Notes Treatment Clinical Notes Section Notes 09/05/2024 Benign prostatic hyperplasia without lower urinary tract symptoms (ICD-10 - N40.0) 09/05/2024 Annual physical exam (ICD-10 - Z00.00) labs reviewed and discussed with patient 09/05/2024 Pure hypercholesterol emia, unspecified (ICD-10 - E78.00) stable, will continue current regiment 09/05/2024 CA of prostate (ICD-10 - C61) has switched urologist as dr orr was looking into his prostate cancer. has had it for 14 years and has no complaints. doesn't want any more biopsies and won't do anything unless psa gets way higher 09/05/2024 Colon cancer screening (ICD-10 - Z12.11) guaiac negative 09/05/2024 Depression screening (ICD-10 - Z13.31) negative screen Plan Of Treatment Medication Medication Name Sig Start Date Stop Date Notes Tamsulosin HCl 0.4 MG 1 capsule Orally Once a day Finasteride 1 MG 1 tablet Orally Once a day Treatment Notes Assessment Notes Annual physical exam labs reviewed and d iscussed with patient Pure hypercholesterolemia, unspecified s table, will continue current regiment CA of prostate has switched urologi st as dr orr was looking into his prostate cancer. has had it for 14 years and has no complaints. doesn't want any more biopsies and won't do anything unless psa gets way higher Colon cancer screening guaiac negative Depression screening negative screen Pending Test Test Name Order Date UA ClnCatch+Micro w/rflx Cult 09/05/2024 Next Appt Details Follow Up: 1 Year, Reason: Provider Name:Margarito saucedo, 08/31/2025 07:45:00 AM, [address] [place] [address], [address], [place], [place], [phone], Provider Name:Margarito saucedo, 09/07/2025 01:00:00 PM, [address] [place] [address] Drive, [address], [place], [place], [phone], Progress Notes * Dani ESPINO FDOB:[birth year] (68 yo M)Acc No.[id number]:09/05/2024 Progress Notes Patient:?Dani ESPINO Yasmany Provider:?Margarito Ramos MD :1955???Age:68 Y???Sex:Male Bharath e:09/05/2024 Address:[address] [place] [address] [id number] Subjective: * Chief Complaints: * ???1. annual/ see back PSA. * HPI: ???Depression Screening:?PHQ-9?Little interest or pleasure in doing things?Not at all,?Feeling down, depressed, or hopeless?Not at all,?Trouble falling or staying asleep, or sleeping too much?Not at all,?Feeling tired or having little energy?Not at all,?Poor appetite or overeating?Not at all,?Feeling bad about yourself or that you are a failure, or have let yourself or your family down?Not at all,?Trouble concentrating on things, such as reading the newspaper or watching television?Not at all,?Moving or speaking so slowly that other people could have noticed; or the opposite, being so fidgety or restless that you have been moving around a lot more than usual?Not at all,?Thoughts that you would be better off or of hurting yourself in some way?Not at all,?Total Score?0.?Interpretation and Intervention?Depression Screening Findings?Negative,?Follow-Up for Depression?: review of PHQ-9 found negative result, no follow-up needed.?Communication Needs:?Communication Needs?Does the patient have a hearing impairment?No,?Does the patient have a vision impairment??Yes,?If yes, what is the vision impairment??Glasses,?Does the patient have a cognition impairment??No.?Fall Risk:?History?Have you had any falls with injury in the past year??No,?Have you had two or more falls in the past year??No.?SDOH Questions:?SDOH Questions?In the past year have you been worried about losing housing??No,?In the past year have you or any family members you live with been unable to get any of the following when it was really needed? Check all that apply:?None.?Symptom(s):?patient is a 68 yo male here for annual visit with review of recent labs and follow up of chronic issues. * ROS:?General/Constitutional:?Patient denies?fatigue, headache.?Change in appetite?denies.?Chills?denies.?Fever?denies.?Ophthalmologic:?Blurred vision?denies.?Discharge?denies.?Pain?denies.?ENT:?Patient denies?decreased sense of smell, any loss of taste, sore throat.?Decreased hearing?denies.?Sore throat?denies.?Swollen glands?denies.?Endocrine:?Cold intolerance?denies.?Excessive thirst?denies.?Heat intolerance?denies.?Weight loss?denies.?Respiratory:?Cough?denies.?Shortness of breath at rest?denies.?Shortness of breath with exertion?denies.?Wheezing?denies.?Cardiovascular:?Chest pain at rest?denies.?Chest pain with exertion?denies.?Irregular heartbeat?denies.?Shortness of breath?denies.?Gastrointestinal:?Abdominal pain?denies.?Change in bowel habits?denies.?Diarrhea?denies.?Nausea?denies.?Rectal bleeding?denies.?Vomiting?denies .?Genitourinary:?Blood in urine?denies.?Difficulty urinating?denies.?Frequent urination?denies.?Musculoskeletal:?Patient denies?muscle aches.?Painful joints?denies.?Weakness?denies.?Peripheral Vascular:?Patient denies?red and blue toes.?Skin:?Dry skin?denies.?Itching?denies.?Denies?Mole(s),? changes in moles, new moles or any lesions of concern.?Denies?Photosensitivity.?Rash?denies.?Neurologic:?Dizziness?denies.?Fainting?denies.?Headache?denies.? * Medical History:?partial res ection of colon for colon polyp dr presley; Colonoscopy 11/23/16 w/Dr. Israel - repeat 1 year; colonoscopy done 10/24/[address] Israel - repeat 3 years: 03/19/23 colonoscopy repeat 5 yrs. * Family History:?Father: dece ased 68 yrs, diagnosed with Cancer.?Mother: 72 yrs, diagnosed with Cancer.?1 son(s) , 1 daughter(s) . .? 1 brother -Cancer, Denies mental health/substance abuse family history, No pertinent family medical history, Denies mental health/substance abuse family history, No pertinent family medical history. * Social History:?Tobacco Use:?Tobacco Use/Smoking?Patient is a?nonsmoker,?Additional Findings: Tobacco Non-User?Current non-smoker, currently using no form of tobacco.?Drugs/Alcohol:?Alcohol Screen?Did you have a drink containing alcohol in the past year??Yes,?How often did you have a drink containing alcohol in the past year??Monthly or less (1 point),?How many drinks did you have on a typical day when you were drinking in the past year??1 or 2 drinks (0 point),?How often did you have 6 or more drinks on one occasion in the past year??Never (0 point),?Points?1,?Interpretation?Negative.?Miscellaneous:?Caffeine: yes, frequency:1 CAFFEINE DRINK A DAY. Children: yes. Community involvements: no. Exercise: yes, walks. Housing: renting. Living with: alone. Marital status: single. Occupation: retired. Pets: none. Travel outside of the [place]: no. * Medications:?Taking Cholesty ramine 4 GM/DOSE Powder 1 scoop Orally Once a day , Taking Tamsulosin HCl 0.4 MG Capsule 1 capsule Orally Once a day , Taking Finasteride 1 MG Tablet 1 tablet Orally Once a day , Taking CeleBREX 200 MG Capsule 1 capsule with food Orally twice a day , Not-Taking/PRN Ventolin HFA 108 (90 Base) MCG/ACT Aerosol Solution 2 puffs as needed Inhalation every 4 hrs , Not-Taking/PRN Naproxen 500 MG Tablet 1 tablet with food or milk as needed Orally every 12 hrs , Medication List reviewed and reconciled with the patient * Allergies:?N.K.D.A. Objective: * Vitals:?Ht: 68, Wt: 169, BMI :25.69, BP:132/80, Wt-k.66. weight is down 4 pounds since 01-18-24. * ???Past Orders: ???Lab:Complete Blood Count Auto Diff (Order Date - 08/29/2024) (Collection Date & Time - 08/29/2024 07:45 AM) ? Value Reference Range ?White Blood Count 6.9 4. 8-10.8 - X10*3/uL ?Red Blood Count 5.58 4.60 -5.80 - X10*6/uL ?Hemoglobin 16.2 14.0-18.0 - g/dl ?Hematocrit 47.9 42.0-52.0 - % ?Mean Corpuscular Volume 85.8 80.0-98.0 - fL ?Mean Corpuscular Hemoglobin 29.0 27.0-33.0 - pg ?Mean Corpuscular HGB Conc 33.8 31.0-36.0 - g/dl ?Red Cell Distribution Width 13.2 11.0-16.0 - % ?Platelet Count 188 160-4 00 - X10*3/uL ?Mean Platelet Volume 12.0 9.4-12.4 - fL ?Neutrophils Percent Auto 57.4 45-73 - % ?Imm Gran Pct Auto 0.3 0. 0-0.4 - % ?Lymphocytes Percent Auto 32.3 20-40 - % ?Monocytes Percent Auto 7.6 2-11 - % ?Eosinophils Percent Auto 2.0 0-4 - % ?Basophils Percent Auto 0.4 0-2 - % ?NRBC Pct Auto 0.0 0.0-0. 2 - /100WBC ?Neutrophils Absolute Auto 4.0 2.0-8.3 - x10*3/uL ?Imm Gran Abs Auto 0.02 0. 00-0.03 - X10*3/uL ?Lymphocytes Absolute Auto 2.2 1.2-4.9 - X10*3/uL ?Monocytes Absolute Auto 0.5 0.1-1.2 - X10*3/uL ?Eosinophils Absolute Auto 0.1 0.0-0.4 - X10*3/uL ?Basophils Absolute Auto 0.0 0.0-0.2 - X10*3/uL ?NRBC Abs Auto 0.000 0.0-0. 012 - X10*3/uL ???Lab:Comprehensive [place]. P adam Fast (Order Date - 08/29/2024) (Collection Date & Time - 08/29/2024 07:45 AM) ? Value Reference Range ?Sodium 140 135-145 - mmo l/L ?Bilirubin Total 2.4 H 0.0- 1.0 - mg/dL ?Aspartate Amino Transferase 28 5-37 - U/L ?Alanine Aminotransferase 21 0-40 - U/L ?Total Protein 7.7 6.5-8. 0 - g/dL ?Albumin Level 4.5 3.5-5. 0 - g/dL ?Alkaline Phosphatase 71 39-117 - U/L ?Potassium 3.6 3.3-5.1 - mmol/L ?Chloride 104 96-108 - mm ol/L ?Carbon Dioxide 29 22-29 - mmol/L ?Anion Gap 11 L 12-20 - ?Blood Urea Nitrogen 13 9-16 - mg/dL ?Creatinine 0.91 0.5-1.4 - mg/dL ?Estimated Glomerular Filt Rate > 60 - ?Glucose Fasting 108 H 60-9 9 - mg/dL ?Calcium 8.9 8.4-10.2 - m g/dL ???Lab:Lipid Panel (Order Da te - 08/29/2024) (Collection Date & Time - 08/29/2024 07:45 AM) ? Value Reference Range ?Triglycerides 116 <150 - mg/dL ?Cholesterol 187 <200 - m g/dL ?LDL Cholesterol Calculated 107 H <100 - mg/dL ?HDL Cholesterol 57 >40 - mg/dL ???Lab:PSA,Total (Free>4and< 10) (Order Date - 08/29/2024) (Collection Date & Time - 08/29/2024 07:45 AM) ? Value Reference Range ?PSA,Total (Free>4and<10) 7.27 H 0.00-4.00 - ng/mL * Examination: ???General Examination: ?GENERAL APPEARANCE:?well developed, well nourished, in no acute distress.?HEAD:?normocephalic, atraumatic.?EYES:?pupils equal, round, reactive to light and accommodation, sclera non-icteric.?EARS:?normal.?ORAL CAVITY:?mucosa moist.?THROAT:?clear.?NECK/THYROID:?neck supple, full range of motion, no cervical lymphadenopathy, no bruits.?SKIN:?warm and dry, no suspicious lesions.?HEART:?regular rate and rhythm, S1, S2 normal, no murmurs.?LUNGS:?clear to auscultation bilaterally.?ABDOMEN:?soft, nontender, nondistended, bowel sounds present, normal, no organomegaly , no masses palpable.?RECTAL EXAM:?normal tone, no external hemorrhoids, no masses palpable, prostate normal, stool guaiac negative.?MALE GENITOURINARY:?circumcised, no penile lesions or discharge, no testicular mass.?EXTREMITIES:?no clubbing, cyanosis, or edema.?NEUROLOGIC:?nonfocal, motor strength normal upper and lower extremities, sensory exam intact.? Assessment: * Assessment: 1.?Annual physical exam - Z0 0.00 (Primary)???2.?Benign prostatic hyperplasia without lower urinary tract symptoms - N40.0???3.?Pure hypercholesterolemia, unspecified - E78.00???4.?CA of prostate - C61???5.?Colon cancer screening - Z12.11???6.?Depression screening - Z13.31??? Plan: * Treatment: 2.?Benign prostatic hyperpla sandro without lower urinary tract symptoms? Continue Tamsulosin HCl Capsule, 0.4 MG, 1 capsule, Orally, Once a day;?Continue Finasteride Tablet, 1 MG, 1 tablet, Orally, Once a day.?LAB: UA ClnCatch+Micro w/rflx Cult (Collection Date & Time - 09/05/2024 02:00 PM) 3.?Pure hypercholesterolemia , unspecified?LAB: UA ClnCatch+Micro w/rflx Cult (Collection Date & Time - 09/05/2024 02:00 PM) Notes: stable, will continue current regiment?? 4.?CA of prostate? Notes: has switched urologist as dr orr was looking into his prostate cancer. has had it for 14 years and has no complaints. doesn't want any more biopsies and won't do anything unless psa gets way higher?? 5.?Colon cancer screening? Notes: guaiac negative?? 6.?Depression screening? Notes: negative screen?? * Follow Up:?1 Year * * The named appointment provid er may or may not be the originator of this progress note, and it is not deemed complete until electronically signed by the appointment provider. Sign off status: Pending * Provider:?Margarito Ramos MD Date:?0 09/05/2024 Generated for Carolina perez/Alejandro/eTransmitting on:?09/05/2024 04:19 PM EST History and Physical Notes * HPI (History of Present Illness) Category Sub-Category Detail Notes Category Not es Symptom(s) patient is a 68 yo male here for annual visit with review of recent labs and follow up of chronic issues. Depression Screening PHQ-9 Little inte rest or pleasure in doing things: Not at all Feeling down, depressed, or hopeless: No t at all Trouble falling or staying asleep, or sl eeping too much: Not at all Feeling tired or having little energy: N ot at all Poor appetite or overeating: Not at all Feeling bad about yourself o r that you are a failure, or have let yourself or your family down: Not at all Trouble concentrating on thi ngs, such as reading the newspaper or watching television: Not at all Moving or speaking so slowly that other people could have noticed; or the opposite, being so fidgety or restless that you have been moving around a lot more than usual: Not at all Thoughts that you would be b hua off or of hurting yourself in some way: Not at all Total Score: 0 Interpretation and Intervention Depression Tiffany robles Findings: Negative Follow-Up for Depression: : review of PH Q-9 found negative result, no follow-up needed SDOH Questions SDOH Questions In the past year have you been worried about losing housing?: No In the past year have you or any family members you live with been unable to get any of the following when it was really needed? Check all that apply:: None Fall Risk History Have you had any falls with injury i n the past year?: No Have you had two or more falls in the st year?: No Communication Needs Communication Needs Does the patient have a hearing impairment: No Does the patient have a vision impairmen t?: Yes ?If yes, what is the vision impairment?: Glasses Does the patient have a cognition impair ment?: No Examination Category Sub-Category Detail Notes Category Not es General Examination GENERAL APPEARANCE: well dev eloped, well nourished, in no acute distress HEAD: normocephalic, atrau matic EYES: pupils equal, round, reactive to light and accommodation, sclera non- icteric EARS: normal THROAT: clear NECK/THYROID: neck supple, full ra nge of motion, no cervical lymphadenopathy, no bruits HEART: regular rate and rhy thm, S1, S2 normal, no murmurs LUNGS: clear to auscultatio n bilaterally ABDOMEN: soft, nontender, non distended, bowel sounds present, normal, no organomegaly , no masses palpable NEUROLOGIC: nonfocal, motor stre ngth normal upper and lower extremities, sensory exam intact SKIN: warm and dry, no andrew picious lesions EXTREMITIES: no clubbing, cyanosi s, or edema MALE GENITOURINARY: circumcised, no peni le lesions or discharge, no testicular mass RECTAL EXAM: normal tone, no exte rnal hemorrhoids, no masses palpable, prostate normal, stool guaiac negative ORAL CAVITY: mucosa moist
--- OUTSIDE RECORDS SUMMARY | 2024-09-05 16:20 | XMS_ITS ---
Author Organization [facility] Address [address] [place] [address] Care Team Providers Care Warper Fixer Name Role Phone Margarito Ramos MD Primary Care Provider Justin Burnham [phone] REASON FOR VISIT cx COLLIERY CLERK 05/01 Encounters Encounter Location Date Provider Diagnosis [facility] [address] [place] [address] 04/04/2024 Justin Galdamez Plan Of Treatment No Information Progress Notes * Dani ESPINODOB:1955 (68 yo M)Acc No.[id number]:04/04/2024 Patient:?Dani Espino :1955???Age:68 Y???Sex:Male Address:[address] [place] [address] , [address], [place], [address] * true * Date:? Generated for Carolina perez/Alejandro/eTransmitting on:?09/05/2024 04:19 PM EST
--- OUTSIDE RECORDS SUMMARY | 2024-09-05 16:20 | XMS_ITS | Patient Health Record ---
Author Organization Margarito Ramos MD Address [address] [place], [place] [id number] Care Team Providers Care Paper Sorter Name Role Phone Margarito Ramos Primary Care Provider [phone] Allergies No Known Allergies Results Component Value Reference Range Notes Prostate Specific Antigen Reviewed date:03/09/2024 12:27:14 PM Interpretation: Performing Lab:[facility], [address] [place] [phone] Notes/Report: Prostate Specific Antigen 7.43 <0.05-4.0 ng/mL PSA methodology: Parada Alinity i Chemiluminescent Microparticle Immunoassay (CMIA) Complete Blood Count Auto Di ff Reviewed date:08/29/2024 04:38:19 PM Interpretation: Performing Lab:[address] [phone] Notes/Report: White Blood Count 6.9 4.8-10.8 X10*3/uL [...] NRBC Abs Auto 0.000 0.0-0.012 X10*3/uL Comprehensive [place]. Panel Fa st Reviewed date:08/29/2024 04:31:00 PM Interpretation: Performing Lab:[facility], [address] [place] [phone] Notes/Report: Sodium 140 135-145 mmol/L Potassium 3.6 [...] Panel Reviewed date:08/29/2024 12:37:39 PM Interpretation: Performing Lab:[address] [phone] Notes/Report: Triglycerides 116 <150 mg/dL Desirable Triglyceride: [...] (Free>4and<10) Reviewed date:08/29/2024 12:38:40 PM Interpretation: Performing Lab:[facility], [address] [place] [phone] Notes/Report: PSA,Total (Free>4and<10) 7.27 0.00-4.00 ng/mL PSA methodology: Parada Alinity i Chemiluminescent Microparticle Immunoassay (CMIA) PSA Free and Total Reviewed date:09/05/2024 02:16:06 PM Interpretation:see back 09-05-24 Performing Lab:[facility], [address] [place] [phone] Notes/Report: Prostate Specific Ag Total 7.4 < OR = 4.0 ng/ mL Percent Free Prostate Spec Ag 9 >25 % (calc ) PSA(ng/mL) Free PSA(%) Estimated(x) Probability of Cancer(as%) 0-2.5 (*) Approx. 1 2.6-4.0(1) 0-27(2) 24(3) 4.1-10(4) 0-10 56 11-15 28 16-20 20 21-25 16 >or =26 8 >10(+) N/A >50 References:(1)Adan et al.:Urology 60: 469-474 (2001) (2)Adan et al.:J.Urol 168: 922-925 (2001) Free PSA(%) Sensitivity(%) Specificity(%) < or = 25 85 19 < or = 30 93 9 (3)Catalona et al.:KYRA 277: 0398-7081 (1996) (4)Catalona et al.:KYRA 279: 9254-2300 (1997) (x)These estimates vary with age, ethnicity, family history and DAMIEN results. (*)The diagnostic usefulness of % Free PSA has not been established in patients with total PSA below 2.6 ng/mL (+)In men with PSA above 10 ng/mL, prostate cancer risk is determined by total PSA alone. The Total PSA value from this assay system is standardized against the equimolar PSA standard. The test result will be approximately 20% higher when compared to the WHO-standardized Total PSA (Siemens assay). Comparison of serial PSA results should be interpreted with this fact in mind. PSA was performed using the Bhupinder Dejuan Immunoassay method. Values obtained from different assay methods cannot be used interchangeably. PSA levels, regardless of value, should not be interpreted as absolute evidence of the presence or absence of disease. THIS TEST WAS PERFORMED AT: [facility] [address] [address] MANINDER KLEIN MD Free Prostate Spec Ag 0.7 UA ClnCatch+Micro w/rflx Cul t (Not yet reviewed by provider) Interpretation: Performing Lab:[facility], [address] [place] [phone] Notes/Report: Urine, Clean Catch Color Urine Yellow Appearance Urine Clear PH 6.5 5.0-9.0 Glucose Urine UA Negative Negative mg/dL Urine Blood Negative Negative Specific [place] - Urine 1.015 1.005-1.025 Urine Protein Negative Neg-Trace mg/dL Urine Ketones Negative Negative mg/dL Nitrite Urine Negative Negative Leukocyte Esterase Urine Negative Negative RBC Urine 0-2 0-2 /HPF WBC Urine 0-5 0-5 /HPF Squamous Epithelial Cell Urine 0-2 0-2 /HPF Bacteria Urine None Seen None Seen Hyaline Casts Urine 0-2 0-2 /LPF Reason For Referral No Information Medications Medication SIG (Take, Route, Frequency, Duration) Notes Start Date End Date Status Ventolin HFA 108 (90 Base) MCG/ACT 2 puffs as needed Inhalation every 4 hrs for 30 days 08/17/2019 Not-Taking Naproxen 500 MG 1 tablet with food o r milk as needed Orally every 12 hrs for 30 days Not-Taking CeleBREX 200 MG 1 capsule with food Orally twice a day Active Tamsulosin HCl 0.4 MG 1 capsule Orally O nce a day Active Cholestyramine 4 GM/DOSE 1 scoop Orally Once a day for 30 day(s) Active Finasteride 1 MG 1 tablet Orally Once a day Active Immunizations Vaccine Route Administration Date Status Comme nts Fluarix Quadrivalent Unknown 05/09/[address] Richie Sam's (not sure of exact day Flu Vaccine Unknown 05/31/2018 Administered had at work PPSV23 (Pnemovax) IM Intramuscular 08/15/2018 Administered Fluarix Quadrivalent IM Intramuscular 06/08/2019 Administe red Fluarix Quadrivalent IM Intramuscular 05/09/2020 Administe red Covid Vaccine Unknown 11/04/2020 Administered PFIZER CV S Covid Vaccine Unknown 2020 Administered PFIZER CV S SARS-COV-2 Pfizer Unknown 05/26/2021 Administered Influenza High Dose Unknown 05/26/2021 Administered Influenza High Dose Unknown 05/26/2022 Administered SARS-COV-2 Pfizer Unknown 03/15/2022 Administered SARS-COV-2 Pfizer Unknown 07/26/2022 Administered TDaP Unknown 07/12/2020 Refused Shingrix Unknown 07/12/2020 Refused Social History Tobacco Use: Social History Observation [...] Never (0 point) Points 1 Interpretation Negative Problems Problem Type SNOMED Code ICD Code Onset Dates Problem Status W/U Status Risk Notes Problem 70406390 Irritable bowel syndrome without diarrhea (K58.9) Active confirmed Problem 104280063 Lumbago with sciatica, right side (M54.41) Active confirmed Problem 103339274 Unspecified symptoms and signs involving cognitive functions and awareness (R41.9) Active confirmed Problem Arthritis (3050909) Arthritis (M19.90) Active confirmed Problem 10224219 Chronic fatigue (R53.82) Active confirmed Problem 254495618 Pure hypercholesterole niki, unspecified (E78.00) Active confirmed Problem 148206118 Benign prostatic hyperplasia without lower urinary tract symptoms (N40.0) Active confirmed Problem 420192199 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 confirmed Problem 798800943 Arthropathy (M12.9) Active confirmed Problem 629046168 CA of prostate (C61) Active confirmed Problem Lipoprotein above reference range (finding) (702302862) 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 Problem 654325497 Arthritis of hand, 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) Active confirmed Problem 680155367 Cervical disciti s (M46.42) Active confirmed Vital Signs Blood pressure diastolic 80 mm Hg 09/05/2024 carlene ght is down 4 pounds since 01-18-24 Height 68 in 09/05/2024 weight is down 4 pounds since 01-18-24 Blood pressure systolic 132 mm Hg 09/05/2024 weig ht is down 4 pounds since 01-18-24 Weight 169 lbs 09/05/2024 weight is down 4 pounds since 01-18-24 BMI 25.69 kg/m2 09/05/2024 weight is down 4 pounds since 01-18-24 Encounters Encounter Location Date Provider Diagnosis Margarito Ramos MD [address] [place] [id number] 08/29/2024 Margarito Ramos Blood tests for routine general physical examination Z00.00 and Pure hypercholesterolemia , unspecified E78.00 Marg[address] Ramos MD [address] [place] [id number] 09/05/2024 Margarito Ramos Benign prostatic hyperplasia without lower urinary tract symptoms N40.0 ; Annual physical exam Z00.00 ; Pure hypercholesterolemia , unspecified E78.00 ; CA of prostate C61 ; Colon cancer screening Z12.11 and Depression screening Z13.31 Margarito Ramos MD [address] [place] [id number] 01/18/2024 Margarito Ramos right Geoff M21.611 Margarito Ramos MD [address] [place] [id number] 09/09/2023 Margarito Ramos MD [address] [place] [id number] 08/29/2024 Margarito Ramos Assessments Encounter Date Diagnosis (ICD Code) Assessment Notes Treatment Notes Treatment Clinical Notes Section Notes 08/29/2024 Blood tests for routine general physical examination (ICD-10 - Z00.00) 08/29/2024 Pure hypercholesterol emia, unspecified (ICD-10 - E78.00) 09/05/2024 Benign prostatic hyperplasia without lower urinary tract symptoms (ICD-10 - N40.0) 09/05/2024 Annual physical exam (ICD-10 - Z00.00) labs reviewed and discussed with patient 01/18/2024 right Geoff (ICD-10 - M21.611) referal to podiatry Patient to call for his own appointment 09/05/2024 Pure hypercholesterol emia, unspecified (ICD-10 - [...] - Z13.31) negative screen Plan Of Treatment Pending Test Test Name Order Date Electrocardiogram (EKG) 06/23/2019 NM bone scan whole body 02/05/2022 XR cervical spine 2V 02/27/2022 XR thoracic spine 2V 02/27/2022 UA ClnCatch+Micro w/rflx Cult 08/29/2024 UA ClnCatch+Micro w/rflx Cult 09/05/2024 Next Appt Details Provider Name:Margarito Phoenix ier, 08/31/2025 07:45:00 AM, [address] [facility], [address], [place], [place], [id number], Provider Name:Margarito Phoenix ier, 09/07/2025 01:00:00 PM, [address] [place] [address], [address], [place], [place], [id number], Insurance Providers Payer Name Payer Address Payer Phone Subscriber Number Group Number Insured Name Patient Relationship to Insured Coverage Start Date Coverage End Date [employer] [address] [place], [place] [id number] Louie portilloDani Self - patient is the insured MEDICARE [address] [address] [id number] Louie portilloDani Self - patient is the insured Medical (General) History Medical History History ICD Code partial resection of colon f or colon polyp dr fuentes; Colonoscopy 11/23/16 w/Dr. Israel - repeat 1 year; colonoscopy done 10/24/[address] Irsael - repeat 3 years: 03/19/23 colonoscopy repeat 5 yrs
--- OUTSIDE RECORDS SUMMARY | 2024-09-05 16:20 | XMS_ITS | Clinical Summary ---
Author Organization [facility] Address [address] [place] [address] Care Team Providers Care Chief Dog License Inspector Name Role Phone Unavailable Primary Care Provider [...]
--- OUTSIDE RECORDS SUMMARY | 2024-09-05 16:20 | XMS_ITS | Patient Health Record ---
Author Organization [facility] Address [address] [place] [address] Care Team Providers Care Pulpwood Dealer Name Role Phone Margarito Ramos MD Primary Care Provider Justin Burnham [phone] Reason For Referral No Information Encounters Encounter Location Date Provider Diagnosis [facility] [address] [place] [address] 04/04/2024 Justin Galdamez Plan Of Treatment No Information Insurance Providers Payer Name Payer Address Payer Phone Subscriber Number Group Number Insured Name Patient Relationship to Insured Coverage Start Date Coverage End Date [employer] Medicare [id number] [address] [address] [place] [address] [id number] Dani Rosas Self - patient is the insured
== END 2024-09-05 15:22 | disposition home or self-care (01) ==
LOC: HO.LNP 15:21
PROVIDERS: Visit Provider Internal Medicine
DX: N40.0 Benign prostatic hyperplasia without lower urinary tract symptoms (principal); E78.00 Pure hypercholesterolemia, unspecified
CPT/HCPCS: 81001

== ENCOUNTER 2024-09-07 10:33 | Outpatient (AMB) | payer MEDICARE, SELFPAY ==
--- NOTE | 2024-09-07 10:34 | A.OFFVIS_ITS ---
Intake Visit Reasons: 6M PSA(set) Intake Note: Patient is present for 6M PSA Urology Medication:TAMSULOSIN,FINASTERIDE Antibiotic Allergy:NONE Blood Thinner:NONE Travel Director Required: No Allergies No Known Allergies [No Known Allergies*] Allergy (Verified 09/07/24 10:34) HPI Comments Details: Evelio is a pleasant male. He is a patient of Dr. Ramos. He is seen for the following urologic conditions - prostate cancer Surveillance Prior biopsy PSA stable Continue interval surveillance Prostate cancer PSA diagnosis 12 Has been on active surveillance Currently treated with finasteride and tamsulosin Multiple biopsies MRI has been performed which showed confined disease - 03/27 prostate MRI PI-RADS 3 He would like to continue with current approach Would recommend interval imaging and biopsy PSA - 04/01 7.4 %F 8, 09/02 7.4 9% PFSH Medical History (Updated 03/07/24 @ 12:04 by Eze Delgado MD) IBS (irritable bowel syndrome) Numbness and tingling in right hand History of prostate cancer Arthritis Thrombosed hemorrhoids BPH (benign prostatic hyperplasia) Surgical History Hx of esophagogastroduodenoscopy History of cervical spinal surgery Hx of colonoscopy History of elbow surgery History of nasal surgery History of umbilical hernia repair Hx of abdominal surgery Social History Patient Tobacco Use Status: Never used Tobacco Review of Systems Const Denies chills and Denies fever(s) Card Reports no additional complaints and Denies syncope Resp Denies cough GI Denies abdominal pain and Denies heartburn Reports as per HPI and Denies change in libido Neuro Denies syncope Psych Denies change in libido Endo Denies change in libido Physical Exam Const General: cooperative, healthy appearing, comfortable and no acute distress Orientation/consciousness: patient oriented x3 HEENT Face and sinus: Yes normal facial exam Mouth: moist mucous membranes Neck Neck: Yes normal visual inspection, Yes full ROM and Yes trachea midline Chest Chest palpation & inspection: normal inspection of the chest Resp Effort & Inspection: normal respiratory effort, able to speak in complete sentences and no respiratory distress GI Inspection: Yes normal to inspection Back/Spine/Pelvis Cervical Spine: normal cervical lordosis Thoracic/Lumbar Spine: thoracic and lumbar spine normal to inspection Skin General skin exam: no rashes or lesions noted Neuro General: patient oriented x3, gait normal, tone normal and moves all extremities Extrem General: Yes normal to inspection and Yes capillary refill normal Assessment & Plan Assessment & Plan (1) Prostate cancer: Code(s): C61 - Malignant neoplasm of prostate Category: Medical (2) BPH (benign prostatic hyperplasia): Code(s): N40.0 - Benign prostatic hyperplasia without lower urinary tract symptoms Category: Medical Plan Six-month follow-up MRI imaging and PSA Orders: Orders Prostate Specific Antigen 6 Months C61 - Malignant neoplasm of prostate MR Prostate wo/w con 6 Months C61 - Malignant neoplasm of prostate Patient Instructions: This note is constructed using voice recognition software. While every effort has been made to ensure accuracy commodities requirements analyst errors may have been included. Imaging studies, laboratory and physical exam results were discussed and reviewed in detail. No major barriers to patient understanding were identified. An opportunity to ask questions regarding the treatment plan was provided. All q uestions were answered. The patient expressed understanding and agreement with the above treatment plan. The patient is aware they should contact our office by phone for worsening of their current condition or the appearance of new urologic symptoms. Compliance is encouraged with any medications and followup testing that is ordered. It is a privilege to participate in the urologic care of your patient. If you have any questions or concerns regarding treatment for the above conditions, or other urologic issues, please do not hesitate to contact me. The office telephone contact is [phone]. Sincerely, Dr Eze Delgado MD, [facility] - Urology Compassionate Specialist Care for the Genitourinary System Coding Level of Care Code Est Pt Level 3 (50148) Complex EM visit Add On G2211 Diagnoses Prostate cancer C61 BPH (benign prostatic hyperplasia) N40.0
--- OUTSIDE RECORDS SUMMARY | 2024-09-07 14:09 | XMS_ITS | Patient Health Record ---
Author Organization [facility] Address [address] [place] [address] Care Team Providers Care Civil Engineer Helper Name Role Phone Margarito Ramos MD Primary Care Provider Cody Hackett Unavailable [phone] ALLERGIES No Known Allergies REASON FOR REFERRAL No Information MEDICATIONS Medication SIG (Take, Route, Frequency, Duration) Notes Start Date End Date Status Cholestyramine 4 GM/DOSE USE /4 TO 1/2 SCOOP MIXED IN A GLASS OF WATER OR ORANGE JUICE ORALLY 1-2X FOR DIARRHEA 30 DAY(S) for 30 Active Celecoxib 200 MG TAKE 1 CAPSULE BY [facility] TWICE DAILY Oral for 90 Active [...] Problem Irregular bowel habits (R19.8) Active confirmed 179315043 Problem Irritable bowel syndrome with both constipation and diarrhea (K58.2) Active confirmed 46915832 Problem Encounter for screening for malignant neoplasm of colon (Z12.11) Active confirmed 168015533 Problem Encounter for screening for malignant neoplasm of rectum (Z12.12) Active confirmed Screening fo r malignant neoplasm of rectum (449832959) Problem Abdominal pain, epigastric (R10.13) Active confirmed 56630808 Problem Villous adenoma of colon (D37.4) Active confirmed 822779643 Problem Hx of adenomatous colonic polyps (Z86.010) Active confirmed 467873867 Problem Heme + stool (R19.5) Active confirmed 37210572 Problem Diarrhea, unspecified type (R19.7) Active confirmed 49163412 Problem 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 confirmed 30300247 Problem Hx of Billroth II operation (Z98.0) Active confirmed History of gastrointestinal tract bypass (282937788) Problem Diverticulosis of colon (K57.30) Active confirmed Diverticulosi s of colon (627428876) PLAN OF TREATMENT Pending Test Test Name Order Date XR ABD UPRIGHT AND CHEST 04/04/2020 STOOL WBC 04/04/2020 Future Test Test Name Order Date UPPER GI ENDOSCOPY 08/11/2016 COLONOSCOPY 08/11/2016 COLONOSCOPY 11/10/2016 COLONOSCOPY 09/08/2018 COLONOSCOPY 01/01/2023 Insurance Providers Payer Name Payer Address Payer Phone Subscriber Number Group Number Insured Name Patient Relationship to Insured Coverage Start Date Coverage End Date [facility] BLUE BCBS PROFESSIONAL CLAIMS [address] [place] [address] [id number] MARK ANTHONY RODRIGUEZ Self - patient is the insured MEDICAL (GENERAL) HISTORY Medical History History ICD Code Denies [place],DM,CVA,Lung disease,renal dise ase BPH EGD in 09/2016-small [...]
--- OUTSIDE RECORDS SUMMARY | 2024-09-07 14:09 | XMS_ITS ---
Author Organization Margarito Ramos MD Address [address] [place], [place] [id number] Care Team Providers Care Oracle Pl Sql Developer Name Role Phone RachelTobyn Primary Care Provider [phone] Allergies No Known Allergies Results Component Value Reference Range Notes UA ClnCatch+Micro w/rflx Cul t Reviewed date:09/05/2024 04:28:57 PM Interpretation: Performing Lab:[facility], [address] [place] [phone] Notes/Report: Urine, Clean Catch Color Urine Yellow Appearance Urine Clear PH 6.5 5.0-9.0 Glucose Urine UA Negative Negative mg/dL Urine Blood Negative Negative Specific [place] - Urine 1.015 1.005-1.025 Urine Protein Negative [...] kg/m2 09/05/2024 weight is down 4 pounds replaced by [facility] 01-18-24 Encounters Encounter Location Date Provider Diagnosis Margarito Ramos MD [address] [place] [address] Drive [address] [place], [place] [phone] 09/05/2024 Margarito Ramos Benign prostatic hyperplasia without [...] screening guaiac negative Depression screening negative screen Next Appt Details Follow Up: 1 Year, Reason: Provider Name:Margarito saucedo, 08/31/2025 07:45:00 AM, [address] [place] [address], [address], [phone], Provider Name:Margarito saucedo, 09/07/2025 01:00:00 PM, [address] [place] [address], [address], [place], [place], [phone], Progress Notes * Dani ESPINO FDOB:[birth year] (68 yo M)Acc No.[id number]:09/05/2024 Progress Notes Patient:?Dani ESPINO Yasmany Provider:?Margarito Ramos MD :1955???Age:68 Y???Sex:Male Bharath e:09/05/2024 Address:[address] [place], [place] [address], [id number] Subjective: * Chief Complaints: * ???1. annual/ [...] ection of colon for colon polyp dr fuentes; Colonoscopy 11/23/16 w/Dr. [...] Auto 0.000 0.0-0. 012 - X10*3/uL ???Lab:[facility] [place]. P adam Fast (Order Date - 08/29/2024) [...] Ramos MD Date:?0 09/05/2024 Generated for Carolina perez/Alejandro/Sarahitting on:?09/07/2024 02:09 PM EST History and Physical Notes * [...]
--- OUTSIDE RECORDS SUMMARY | 2024-09-07 14:09 | XMS_ITS ---
Author Organization Margarito Ramos MD Address [address] [place], [place] [id number] Care Team Providers Care Preschool Aide Name Role Phone Margarito Ramos Primary Care Provider Results Component Value Reference Range Notes Complete Blood Count Auto Di ff Reviewed date:08/29/2024 04:38:19 PM Interpretation: Performing Lab:[facility], [address] [place] [phone] Notes/Report: White Blood Count 6.9 4.8-10.8 X10*3/uL [...] NRBC Abs Auto 0.000 0.0-0.012 X10*3/uL Comprehensive [place]. Panel Fa st Reviewed date:08/29/2024 04:31:00 PM Interpretation: Performing Lab:[facility], [address] [place] [phone] Notes/Report: Sodium 140 135-145 mmol/L Potassium 3.6 [...] Panel Reviewed date:08/29/2024 12:37:39 PM Interpretation: Performing Lab:[facility], [address] [place] [phone] Notes/Report: Triglycerides 116 <150 mg/dL Desirable Triglyceride: [...] (Free>4and<10) Reviewed date:08/29/2024 12:38:40 PM Interpretation: Performing Lab:[facility], [address] [place] [phone] Notes/Report: PSA,Total (Free>4and<10) 7.27 0.00-4.00 ng/mL PSA methodology: Parada Alinity i Chemiluminescent Microparticle Immunoassay (CMIA) REASON FOR VISIT FASTING LABS Encounters Encounter Location Date Provider Diagnosis Margarito Ramos MD [address] [facility] [address] [place], [place] [phone] 08/29/2024 Margarito Ramos Blood tests for routine general physical examination Z00.00 and Pure hypercholesterolemia , unspecified E78.00 Assessments Encounter Date Diagnosis (ICD Code) Assessment Notes Treatment Notes Treatment Clinical Notes Section Notes 08/29/2024 Blood tests for routine general physical examination (ICD-10 - Z00.00) 08/29/2024 Pure hypercholesterol emia, unspecified (ICD-10 - E78.00) Plan Of Treatment Pending Test Test Name [facility] 08/29/2024 Next Appt Details Provider Name:Margarito Phoenix ier, 08/31/2025 07:45:00 AM, [address] [facility], [address], [place], [phone], Provider Name:Margarito Phoenix ier, 09/07/2025 01:00:00 PM, [address] [facility], [address], [place], [place], [phone], Progress Notes * Dani ESPINO FDOB:[birth year] (68 yo M)Acc No.[id number]:08/29/2024 Progress Note Patient:?Dani ESPINO Provider:?Margarito Ramos MD :1955???Age:68 Y???Sex:Male Bharath e:08/29/2024 Address:[address] [place], [place] [phone] Subjective: * Chief Complaints: * ???1. FASTING LABS. * Medical History:? Objective: * Vitals:? Assessment: * Assessment: 1.?Blood tests for routine g eneral physical examination - Z00.00 (Primary)???2.?Pure hypercholesterolemia, unspecified - E78.00??? Plan: * Treatment: 2.?Pure hypercholesterolemia , unspecified?LAB: UA ClnCatch+Micro w/rflx Cult ?LAB: Complete Blood Count Auto Diff (Collection Date & Time - 08/29/2024 07:45 AM) ?LAB: [facility] [place]. Panel Fast (Collection Date & Time - 08/29/2024 07:45 AM) ?LAB: Lipid Panel (Collection Date & Time - 08/29/2024 07:45 AM) ?LAB: PSA,Total (Free>4and<10) (Collection Date & Time - 08/29/2024 07:45 AM) * Procedure Codes:?88686 VENIP UNCT, ROUTINE* * * The named appointment provid er may or may not be the originator of this progress note, and it is not deemed complete until electronically signed by the appointment provider. Sign off status: Pending * Provider:?Margarito Ramos MD Date:?0 08/29/2024 Generated for Carolina perez/Alejandro/Alex on:?09/07/2024 02:09 PM EST
--- OUTSIDE RECORDS SUMMARY | 2024-09-07 14:09 | XMS_ITS ---
Author Organization [facility] Address [address] [place] [address] Care Team Providers Care Commissioned Police Officer Name Role Phone Rachel PARKINSON, Margarito Primary Care Provider Justin Burnham Unavailable [phone] Encounters Encounter Location Date Provider Diagnosis [facility] [address] [place] [address] 05/01/2024 Justin Galdamez Plan Of Treatment No Information Progress Notes * Dani ESPINODOB:1955 (68 yo M)Acc No.[id number]:05/01/2024 Progress Notes Patient:?Dani ESPINO Provider:?Justin Galdamez DPM :1955???Age:68 Y???Sex:Male Bharath e:05/01/2024 Address:[address] [place] [address] , [address], [facility] Pcp:Margarito Ramos MD Subjective: * Chief Complaints: [...] DPM Date:? 024 Generated for Carolina perez/Alejandro/eTransmitting on:?09/07/2024 02:08 PM EST
--- OUTSIDE RECORDS SUMMARY | 2024-09-07 14:09 | XMS_ITS ---
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
--- OUTSIDE RECORDS SUMMARY | 2024-09-07 14:09 | XMS_ITS ---
Author Organization Margarito Ramos MD Address [address] [place] [phone] Care Team Providers Care Ballpoint Pen Cartridge Tester Name Role Phone RachelTobyn Primary Care Provider REASON FOR VISIT ins referral Encounters Encounter Location Date Provider Diagnosis Margarito Ramos MD [address] [facility] [address] [place] [phone] 08/29/2024 Margarito Ramos Plan Of Treatment Next Appt Details Provider Name:Margarito saucedo, 08/31/2025 07:45:00 AM, [address] [place] [address], [address] [place] [address], [phone], Provider Name:Margarito saucedo, 09/07/2025 01:00:00 PM, [address] [place] [address], [address] [place] [address], [phone], Progress Notes * Dani ESPINO FDOB:[birth year] (68 yo M)Acc No.[id number]:08/29/2024 Patient:?Dani ESPINO :1955???Age:68 Y???Sex:Male Address:[address] [place] [address] [place], [address] * true * Date:? Generated for Carolina perez/Alejandro/Larissasmitting on:?09/07/2024 02:09 PM EST
--- OUTSIDE RECORDS SUMMARY | 2024-09-07 14:10 | XMS_ITS | Patient Health Record ---
Author Organization [facility] Address [address] [place] [address] Care Team Providers Care Literacy Coach Name Role Phone Margarito Ramos MD Primary Care Provider Justin Burnham [phone] Reason For Referral No Information Encounters Encounter Location Date Provider Diagnosis [facility] [address] [place] [address] 04/04/2024 Justin Galdamez Plan Of Treatment No Information Insurance Providers Payer Name Payer Address Payer Phone Subscriber Number Group Number Insured Name Patient Relationship to Insured Coverage Start Date Coverage End Date [employer] Medicare [id number] [address] [address] [place] [address] [id number] Dani Rosas Self - patient is the insured
--- OUTSIDE RECORDS SUMMARY | 2024-09-07 14:10 | XMS_ITS | Patient Health Record ---
Author Organization Margarito Ramos MD Address [address] [place], [place] [id number] Care Team Providers Care Package Checker Name Role Phone Margarito Ramos Primary Care Provider Allergies No Known Allergies Results Component Value Reference Range Notes Prostate Specific Antigen Reviewed date:03/09/2024 12:27:14 PM Interpretation: Performing Lab:[facility], [address] [place] [phone] Notes/Report: Prostate Specific Antigen 7.43 <0.05-4.0 ng/mL PSA methodology: Parada Alinity i Chemiluminescent Microparticle Immunoassay (CMIA) Complete Blood Count Auto Di ff Reviewed date:08/29/2024 04:38:19 PM Interpretation: Performing Lab:[address] [phone] Notes/Report: White Blood Count 6.9 4.8-10.8 X10*3/uL [...] NRBC Abs Auto 0.000 0.0-0.012 X10*3/uL Comprehensive [place]. Panel Fa st Reviewed date:08/29/2024 04:31:00 PM Interpretation: Performing Lab:[facility], [address] [place] [phone] Notes/Report: Sodium 140 135-145 mmol/L Potassium 3.6 [...] Panel Reviewed date:08/29/2024 12:37:39 PM Interpretation: Performing Lab:[address] [phone] Notes/Report: Triglycerides 116 <150 mg/dL Desirable Triglyceride: [...] (Free>4and<10) Reviewed date:08/29/2024 12:38:40 PM Interpretation: Performing Lab:[facility], [address] [place] [phone] Notes/Report: PSA,Total (Free>4and<10) 7.27 0.00-4.00 ng/mL PSA methodology: Parada Alinity i Chemiluminescent Microparticle Immunoassay (CMIA) PSA Free and Total Reviewed date:09/05/2024 02:16:06 PM Interpretation:see back 09-05-24 Performing Lab:[facility], [address] [place] [phone] Notes/Report: Prostate Specific Ag Total 7.4 < [...] 30 93 9 (3)Catalona et al.:KYRA 277: 9863-7500 (1996) (4)Catalona et al.:KYRA 279: 0732-7112 (1997) (x)These estimates vary with age, ethnicity, [...] of disease. THIS TEST WAS PERFORMED AT: [facility] [address] [place] [phone] MANINEDR KLEIN MD Free Prostate Spec Ag 0.7 UA ClnCatch+Micro w/rflx Cul t Reviewed date:09/05/2024 04:28:57 PM Interpretation: Performing Lab:[facility], [address] [place] [phone] Notes/Report: Urine, Clean Catch Color Urine Yellow Appearance Urine Clear PH 6.5 5.0-9.0 Glucose Urine UA Negative Negative mg/dL Urine Blood Negative Negative Specific [place] - Urine 1.015 1.005-1.025 Urine Protein Negative [...] Problem Status W/U Status Risk Notes Problem 64581488 Irritable bowel syndrome without diarrhea (K58.9) Active confirmed Problem 058181344 Lumbago with sciatica, right side (M54.41) Active confirmed Problem 125638878 Unspecified symptoms and signs involving cognitive functions and awareness (R41.9) Active confirmed Problem Arthritis (2459464) Arthritis (M19.90) Active confirmed Problem 42080292 Chronic fatigue (R53.82) Active confirmed Problem 822140427 Pure hypercholesterole niki, unspecified (E78.00) Active confirmed Problem 993392836 Benign prostatic hyperplasia without lower urinary tract symptoms (N40.0) Active confirmed Problem 689929782 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 confirmed Problem 090343518 Arthropathy (M12.9) Active confirmed Problem 504972891 CA of prostate (C61) Active confirmed Problem Lipoprotein above reference range (finding) (013122362) 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 Problem 372657414 Arthritis of hand, 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) Active confirmed Problem 577084254 Cervical disciti s (M46.42) Active confirmed Vital [...] Margarito Ramos MD [address] [place] [id number] 08/29/2024 Margarito Ramos Blood tests for routine general physical examination Z00.00 and Pure hypercholesterolemia , unspecified E78.00 Margarito Ramos MD [address] [place] [id number] 09/05/2024 Margarito Ramos Benign prostatic hyperplasia without lower urinary tract symptoms N40.0 ; Annual physical exam Z00.00 ; Pure hypercholesterolemia , unspecified E78.00 ; CA of prostate C61 ; Colon cancer screening Z12.11 and Depression screening Z13.31 Margarito Ramos MD [address] [place] [id number] 01/18/2024 Margarito Ramos right Geoff M21.611 Margarito Ramos MD [address] [place] [id number] 09/09/2023 Margarito Ramos MD [address] [place] [id number] 08/29/2024 Margarito Ramos Assessments Encounter Date Diagnosis [...] 2V 02/27/2022 UA ClnCatch+Micro w/rflx Cult 08/29/2024 Next Appt Details Provider Name:Margarito Eligio Phoenix ier, 08/31/2025 07:45:00 AM, [address] [place] [address], [address], [place], [place], [phone], Provider Name:Margaritoayesha Phoenix ier, 09/07/2025 01:00:00 PM, [address] [place] [address], [address], [place], [place], [phone], Insurance Providers Payer Name Payer Address Payer Phone Subscriber Number Group Number Insured Name Patient Relationship to Insured Coverage Start Date Coverage End Date [employer] [address] [place], [place] [id number] AliciaDani wilkerson Self - patient is the insured MEDICARE NHIC ABDI [address] [place] [id number] Dani Rosas Self - patient is the insured Medical (General) History Medical History History ICD Code partial resection of colon f or colon polyp dr fuentes; Colonoscopy 11/23/16 w/Dr. Israel - repeat 1 year; colonoscopy done 10/24/[address] Israel - repeat 3 years: 03/19/23 colonoscopy repeat 5 yrs
--- OUTSIDE RECORDS SUMMARY | 2024-09-07 14:10 | XMS_ITS | Clinical Summary ---
Author Organization [facility] Address [address] [place] [address] Care Team Providers Care Electronic Prepress Technician Name Role Phone Unavailable Primary Care Provider [...]
--- OUTSIDE RECORDS SUMMARY | 2024-09-07 14:10 | XMS_ITS ---
Author Organization [facility] Address [address] [place] [address] Care Team Providers Care Solid Waste Management Engineer Name Role Phone Margarito Ramos MD Primary Care Provider Justin Burnham [phone] REASON FOR VISIT cx DATA CONVERSION OPERATOR 05/01 Encounters Encounter Location Date Provider Diagnosis [facility] [address] [place] [address] 04/04/2024 Justin Galdamez Plan Of Treatment No Information Progress Notes * Dani ESPINODOB:1955 (68 yo M)Acc No.[id number]:04/04/2024 Patient:?Volodymyr Dani :1955???Age:68 Y???Sex:Male Address:[address] [place] [address] , [address], [place], [address] * true * Date:? Generated for Carolina perez/Alejandro/eTransmitting on:?09/07/2024 02:09 PM EST
== END 2024-09-07 11:38 | disposition home or self-care (01) ==
PROVIDERS: PCP Internal Medicine; Visit Provider Urology
DX: C61 Malignant neoplasm of prostate (principal); N40.0 Benign prostatic hyperplasia without lower urinary tract symptoms
CPT/HCPCS: 99213; G2211

== ENCOUNTER → 2024-09-07 10:33 | Outpatient (BNVA) | payer MEDICARE, SELFPAY | PROVIDERS: PCP Internal Medicine; Visit Provider Urology | DX: C61 Malignant neoplasm of prostate (principal); N40.0 Benign prostatic hyperplasia without lower urinary tract symptoms | CPT/HCPCS: 99212 ==

== ENCOUNTER 2025-01-16 09:20 | Outpatient (REF) | payer MEDICARE, SELFPAY ==
--- OUTSIDE RECORDS SUMMARY | 2025-01-16 10:11 | XMS_ITS ---
Author Organization [facility] Address [address] [place] [address] Care Team Providers Care Lay Out Carpenter Name Role Phone Rachel PARKINSON, Margarito Primary Care Provider Justin Burnham Unavailable [phone] Encounters Encounter Location Date Provider Diagnosis [facility] [address] [place] [address] 05/01/2024 Justin Galdamez Plan Of Treatment No Information Progress Notes * Dani ESPINODOB:1955 (69 yo M)Acc No.[id number]:05/01/2024 Progress Notes Patient:?Dani ESPINO Provider:?Justin Galdamez DPM :1955???Age:68 Y???Sex:Male Bharath e:05/01/2024 Address:[address] [place] [address] , [address], [facility] Pcp:Margarito Ramos MD Subjective: * Chief Complaints: [...] DPM Date:? 024 Generated for Carolina perez/Alejandro/eTransmitting on:?01/16/2025 10:11 AM EDT
== END 2025-01-16 09:21 | disposition home or self-care (01) ==
LOC: HO.LAB 09:20
PROVIDERS: PCP Internal Medicine; Visit Provider Urology
DX: C61 Malignant neoplasm of prostate (principal); Z12.5 Encounter for screening for malignant neoplasm of prostate
CPT/HCPCS: 36415; 84153

== ENCOUNTER 2025-02-26 08:36 | Outpatient (REF) | payer MEDICARE, SELFPAY ==
--- OUTSIDE RECORDS SUMMARY | 2024-05-01 04:30 | XMS_ITS ---
Author Organization [facility] Address [address] [place] [address] Care Team Providers Care Particleboard Factory Worker Name Role Phone Rachel PARKINSON, Margarito Primary Care Provider Justin Burnham Unavailable [phone] Encounters Encounter Location Date Provider Diagnosis [facility] [address] [place] [address] 05/01/2024 Justin Galdamez Plan Of Treatment No Information Progress Notes * Dani ESPINODOB:1955 (69 yo M)Acc No.[id number]:05/01/2024 Progress Notes Patient: Dani SIMONS Provider: Tricia Galdamez DPM :1955 A ge:68 Y S ex:Male Date:05/01/2024 Address:[address] [place] [address] , [address] , [facility] Pcp:Margarito Ramos MD Subjective: * Chief Complaints: * * Medical History: Objective: * Vitals: Assessment: Plan: * Treatment: * Images: * The named appointment provid er may or may not be the originator of this progress note, and it is not deemed complete until electronically signed by the appointment provider. Sign off status: Pending * Provider: Tricia Galdamez DPM Date: 0 05/01/2024 Generated for Carolina perez/Alejandro/Sarahitting on: 02/26/2025 08:44 AM EDT
--- OUTSIDE RECORDS SUMMARY | 2024-08-29 03:35 | XMS_ITS ---
Author Organization Margarito Ramos MD Address [address] [place] [phone] Care Team Providers Care Strike Warfare/Missile Systems Officer Name Role Phone LeydiToby brinkn Primary Care Provider [phone] REASON FOR VISIT ins referral Encounters Encounter Location Date Provider Diagnosis Margarito Ramos MD [address] [facility] [address] [place] [phone] 08/29/2024 Margarito Ramos Plan Of Treatment Next Appt Details Provider Name:Margarito saucedo, 08/31/2025 07:45:00 AM, [address] [place] [address], [address] [place] [address], [phone], Provider Name:Margarito saucedo, 09/07/2025 01:00:00 PM, [address] [place] [address], [address] [place] [address], [phone], Progress Notes * Dani EPSINO FDOB:[birth year] (68 yo M)Acc No.[id number]:08/29/2024 Patient: Dani SIMONS :1955 A ge:68 Y S ex:Male Address:[address] [place] [address], [address] * true * Date: Generated for Carolina perez/Alejandro/Sarahitting on: 0 02/26/2025 08:44 AM EDT
--- NOTE | ~2025-02-26 | MR_ITS ---
EXAMINATION: MR PROSTATE WITHOUT THEN WITH IV CONTRAST, MR CAD HISTORY: C61 - Malignant neoplasm of prostate TECHNIQUE: 1.5T body coil survey of the pelvis was performed. Phase array coil imaging of the prostate was performed in multiplanar high resolution axial, coronal, sagittal fast spin echo T2 and axial T1 weighted imaging sequences. Axial diffusion imaging at intermediate and high field performed with ADC mapping. Next, 8 mL Gadavist was given by intravenous infusion, and dynamic axial imaging performed. 3-D reconstructions and post-processing were performed on an independent workstation by the radiologist for biopsy planning using image fusion. COMPARISON: There are no prior studies available for comparison. CLINICAL DATA: Most recent PSA: 8.40 ng/mL on 01/16/2025. PSA Density: 0.86 ng/mL squared Prostate Biopsy: None reported. FINDINGS: Prostate size: 6.3 x 6.1 x 4.9 cm. Calculated prostate volume is 97.9 mL. Hemorrhage: None. Transitional Zone: There is marked heterogeneous nodular hypertrophy of the transitional zone. Peripheral Zone: There is an area of interest in the left posteromedial peripheral zone at the apex with imaging characteristics as follows: Area of interest #1: Location: Left posteromedial peripheral zone at the apex measuring approximately 8 mm (series 7, images 24-25 and series 9, images 22-23). DWI PI-RADS v2.1 score: 4 T2 PI-RADS v2.1 score: 4 DCE PI-RADS v2.1 score: + Overall PI-RADS v2.1 score: 4 Capsular contact: yes Extracapsular extension: None Seminal vesicle invasion: None Neurovascular bundle involvement: None Seminal Vesicles/Ejaculatory Ducts: Symmetric and normal in signal and caliber. Pelvic Lymph Nodes: No obturator or internal iliac lymph nodes meeting size criteria for adenopathy. Marrow Signal: Normal marrow signal and enhancement without focal lesion identified. MR/MR CAD IMPRESSION: Focus of abnormal signal intensity in the left posteromedial peripheral zone at the apex, suspicious for clinically significant prostate carcinoma. PI-RADS 4: High (clinically significant cancer is likely to be present) PI-RADS Assessment Categories PI-RADS 1: Very low (clinically significant cancer is highly unlikely to be present) PI-RADS 2: Low (clinically significant cancer is unlikely to be present) PI-RADS 3: Intermediate (the presence of clinically significant cancer is equivocal) PI-RADS 4: High (clinically significant cancer is likely to be present) PI-RADS 5: Very high (clinically significant cancer is highly likely to be present) [employer]. MR Prostate Imaging Reporting and Data System version 2.1. [email or web address] Electronically signed by: Cody Perry MD 02/26/2025 10:22 AM EDT
--- NOTE | ~2025-02-26 | MR_ITS ---
EXAMINATION: MR PROSTATE WITHOUT THEN WITH IV CONTRAST, MR CAD HISTORY: C61 - Malignant neoplasm of prostate TECHNIQUE: 1.5T body coil survey of the pelvis was performed. Phase array coil imaging of the prostate was performed in multiplanar high resolution axial, coronal, sagittal fast spin echo T2 and axial T1 weighted imaging sequences. Axial diffusion imaging at intermediate and high field performed with ADC mapping. Next, 8 mL Gadavist was given by intravenous infusion, and dynamic axial imaging performed. 3-D reconstructions and post-processing were performed on an independent workstation by the radiologist for biopsy planning using image fusion. COMPARISON: There are no prior studies available for comparison. CLINICAL DATA: Most recent PSA: 8.40 ng/mL on 01/16/2025. PSA Density: 0.86 ng/mL squared Prostate Biopsy: None reported. FINDINGS: Prostate size: 6.3 x 6.1 x 4.9 cm. Calculated prostate volume is 97.9 mL. Hemorrhage: None. Transitional Zone: There is marked heterogeneous nodular hypertrophy of the transitional zone. Peripheral Zone: There is an area of interest in the left posteromedial peripheral zone at the apex with imaging characteristics as follows: Area of interest #1: Location: Left posteromedial peripheral zone at the apex measuring approximately 8 mm (series 7, images 24-25 and series 9, images 22-23). DWI PI-RADS v2.1 score: 4 T2 PI-RADS v2.1 score: 4 DCE PI-RADS v2.1 score: + Overall PI-RADS v2.1 score: 4 Capsular contact: yes Extracapsular extension: None Seminal vesicle invasion: None Neurovascular bundle involvement: None Seminal Vesicles/Ejaculatory Ducts: Symmetric and normal in signal and caliber. Pelvic Lymph Nodes: No obturator or internal iliac lymph nodes meeting size criteria for adenopathy. Marrow Signal: Normal marrow signal and enhancement without focal lesion identified. MR/MR Prostate wo/w con IMPRESSION: Focus of abnormal signal intensity in the left posteromedial peripheral zone at the apex, suspicious for clinically significant prostate carcinoma. PI-RADS 4: High (clinically significant cancer is likely to be present) PI-RADS Assessment Categories PI-RADS 1: Very low (clinically significant cancer is highly unlikely to be present) PI-RADS 2: Low (clinically significant cancer is unlikely to be present) PI-RADS 3: Intermediate (the presence of clinically significant cancer is equivocal) PI-RADS 4: High (clinically significant cancer is likely to be present) PI-RADS 5: Very high (clinically significant cancer is highly likely to be present) [employer]. MR Prostate Imaging Reporting and Data System version 2.1. [email or web address]/ Electronically signed by: Cody Perry MD 02/26/2025 10:22 AM EDT
--- OUTSIDE RECORDS SUMMARY | 2025-02-26 08:45 | XMS_ITS | Patient Health Record ---
Author Organization [facility] Address [address] [place] [address] Care Team Providers Care Fur Finisher Name Role Phone Rachel PARKINSON, Margarito Primary Care Provider Cody Hackett Unavailable [phone] Allergies No Known Allergies Reason For Referral No Information Medications Medication SIG (Take, Route, Frequency, Duration) Notes Start Date End Date Status Cholestyramine USE 1/4 TO 1/2 SCOOP MIXED WITH AN 8 OUNCE GLASS OF WATER OR ORANGE JUICE Orally Once or twice a day for diarrhea for 30 days Active Cholestyramine 4 GM/DOSE USE 1/4 TO 1/2 SCOOP MIXED IN A GLASS OF WATER OR ORANGE JUICE ORALLY 1-2X FOR DIARRHEA 30 DAY(S) for 30 Active Celecoxib 200 MG TAKE 1 CAPSULE BY [facility] TWICE DAILY Oral for 90 Active Finasteride 5 MG 1 tablet Orally Once a day Active Tamsulosin HCl 0.4 MG 1 capsule Orally Once a day Active Immunizations Vaccine Route Administration Date Status Comme nts Influenza Unknown 05/09/2018 Administered Influenza Unknown 05/10/2019 Administered Influenza Unknown 05/26/2022 Administered Social History Alcohol Screen Question Answer Notes Did you [...] Never (0 point) Points 3 Interpretation Negative Section Notes: Nonsmoker, occasional alcoho l Nonsmoker, occasional alcoho l Nonsmoker, occasional alcoho l Nonsmoker, occasional Beer Nonsmoker, occasional Beer Problems Problem Type SNOMED Code ICD Code Onset Dates Problem Status W/U Status Risk Notes Problem 764589572 Encounter for screening for malignant neoplasm of colon (Z12.11) Active confirmed Problem Screening for malignant neoplasm of rectum (886564867) Encounter for screening for malignant neoplasm of rectum (Z12.12) Active confirmed Problem 34477635 Abdominal pain, epigastric (R10.13) Active confirmed Problem 70803966 Heme + stool (R19.5) Active confirmed Problem 286486811 Irregular bowel habits (R19.8) Active confirmed Problem 922381647 Hx of adenomatou s colonic polyps (Z86.010) Active confirmed Problem 06525886 Diarrhea, unspecified type (R19.7) Active confirmed Problem 77268478 Irritable bowel syndrome with both constipation and diarrhea (K58.2) Active confirmed Problem 902274001 Villous adenoma of colon (D37.4) Active confirmed Problem Diverticulosis of colon (094633328) Diverticulosis of colon (K57.30) Active confirmed Problem 50704514 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) Active confirmed Problem Hx of Billroth I I operation (Z98.0) Active confirmed Encounters Encounter Location Date Provider Diagnosis [facility] [address] [place] [address] 01/17/2025 Cody Israel Plan Of Treatment Pending Test Test Name Order Date XR ABD UPRIGHT AND CHEST 04/04/2020 STOOL WBC 04/04/2020 Future Test Test Name Order Date UPPER GI ENDOSCOPY 08/11/2016 COLONOSCOPY 08/11/2016 COLONOSCOPY 11/10/2016 COLONOSCOPY 09/08/2018 COLONOSCOPY 01/01/2023 Insurance Providers Payer Name Payer Address Payer Phone Subscriber Number Group Number Insured Name Patient Relationship to Insured Coverage Start Date Coverage End Date [facility] BLUE BCBS PROFESSIONAL CLAIMS [address] [place] [address] [phone] [id number] MARK ANTHONY RODRIGUEZ Self - patient is the insured Medical (General) History Medical History History ICD Code Denies AL,DM,CVA,Lung disease,renal dise ase BPH EGD in 09/2016-small [...]
--- OUTSIDE RECORDS SUMMARY | 2025-02-26 08:45 | XMS_ITS | Clinical Summary ---
Author Organization [facility] Address [address] [place] [address] Care Team Providers Care Housecleaner Name Role Phone Unavailable Primary Care Provider Unavailabl e Social History Tobacco Use Types Packs/Day Years Used Date Smoking Tobacco: Never Assessed Sex and Gender Information Value Date Recorded Sex Assigned at Not on file Legal Sex Male 3:23 PM EDT Gender Identity Not on file Sexual Orientation [...]
== END 2025-02-26 08:37 | disposition home or self-care (01) ==
LOC: HO.MRI 08:36
PROVIDERS: PCP Internal Medicine; Visit Provider Urology
DX: C61 Malignant neoplasm of prostate (principal)
CPT/HCPCS: 72197; 76377; A9585

== ENCOUNTER → 2025-02-26 08:45 | Outpatient (BNV) | payer MEDICARE, SELFPAY | PROVIDERS: PCP Internal Medicine; Visit Provider Radiology Diagnostic Radiology | DX: C61 Malignant neoplasm of prostate (principal) | CPT/HCPCS: 72197; 76377 ==

== ENCOUNTER 2025-03-07 14:38 | Outpatient (AMB) | payer MEDICARE, SELFPAY ==
--- OUTSIDE RECORDS SUMMARY | 2024-05-01 04:30 | XMS_ITS ---
Author Organization [facility] Address [address] [place] [address] Care Team Providers Care Senior Qualitative Researcher Name Role Phone Rachel PARKINSON, Margarito Primary Care Provider Justin Burnham Unavailable [phone] Encounters Encounter Location Date Provider Diagnosis [facility] [address] [place] [address] 05/01/2024 Justin Galdamez Plan Of Treatment No Information Progress Notes * Dani ESPINODOB:1955 (69 yo M)Acc No.[id number]:05/01/2024 Progress Notes Patient: Dani SIMONS Provider: Tricia Galdamez DPM :1955 A ge:68 Y S ex:Male Date:05/01/2024 Address:[address] [place] [address] , [address] , [facility] Pcp:Margarito Ramos MD Subjective: * Chief Complaints: * * Medical History: Objective: * Vitals: Assessment: Plan: * Treatment: * Images: * The named appointment provid er may or may not be the originator of this progress note, and it is not deemed complete until electronically signed by the appointment provider. Sign off status: Pending * Provider: Tricia Galdamez DPM Date: 05/01/2024 Generated for Carolina perez/Alejandro/eThasmitting on: 03/07/2025 03:18 PM EDT
--- OUTSIDE RECORDS SUMMARY | 2024-08-29 03:35 | XMS_ITS ---
Author Organization Margarito Ramos MD Address [address] [place] [phone] Care Team Providers Care Drawing In Hand Name Role Phone LeydiToby brinkn Primary Care Provider [phone] REASON FOR VISIT ins referral Encounters Encounter Location Date Provider Diagnosis Margarito Ramos MD [address] [facility] [address] [place] [id number] 08/29/2024 Margarito Ramos Plan Of Treatment Next Appt Details Provider Name:Margarito saucedo, 08/31/2025 07:45:00 AM, [address] [place] [address], [address] [place] [address], [id number], Provider Name:Margarito saucedo, 09/07/2025 01:00:00 PM, [address] [place] [address], [address] [place] [address], [phone], Progress Notes * Dani ESPINO FDOB:[birth year] (68 yo M)Acc No.[id number]:08/29/2024 Patient: Dani SIMONS :1955 A ge:68 Y S ex:Male Address:[address] [place] [address], [address] * true * Date: Generated for Carolina perez/Alejandro/Alex on: 0 03/07/2025 03:18 PM EDT
--- NOTE | 2025-03-07 14:44 | A.OFFVIS_ITS ---
Intake Visit Reasons: 6m/PSA/MRI Intake Note: Patient is present for 6M PSA/MRI Urology Medication:TAMSULOSIN,FINASTERIDE Antibiotic Allergy:NONE Blood Thinner:NONE Labs done 01/16/2025:8.40 MRI done : 02/26/2025 [place] Required: No Accompanied by: Self / Same As Patient Allergies No Known Allergies (No Known Allergies*) Allergy (Verified 03/07/25 14:45) HPI Comments Details: Evelio is a pleasant male. He is a patient of Dr. Ramos. He is seen for the following urologic conditions - prostate cancer Had been on surveillance for prostate cancer Discussed recent MRI finding Has been under surveillance since 2010 Lesion is 1 cm within 100 g prostate representing less than 1% of total volume He would like to continue to follow He understands risks of delayed therapy Prostate cancer PSA diagnosis 12 Has been on active surveillance - original diagnosis 2010 [place] 3+ 10/08/2011 cores Currently treated with finasteride and tamsulosin Multiple biopsies MRI has been performed which showed confined disease - 03/27 prostate MRI PI-RADS 3 - 03/02 repeat prostate MRI 100 g, 8 mm left posteromedial peripheral zone at the apex PiRADS4 PSA - 04/01 7.4 %F 8, 09/02 7.4 9%, 01/31 8.4 PFSH Medical History (Updated 03/07/24 @ 12:04 by Eze Delgado MD) IBS (irritable bowel syndrome) Numbness and tingling in right hand History of prostate cancer Arthritis Thrombosed hemorrhoids BPH (benign prostatic hyperplasia) Surgical History Hx of esophagogastroduodenoscopy History of cervical spinal surgery Hx of colonoscopy History of elbow surgery History of nasal surgery History of umbilical hernia repair Hx of abdominal surgery Social History Patient Tobacco Use Status: Never used Tobacco Review of Systems Const Denies chills and Denies fever(s) Card Reports no additional complaints and Denies syncope Resp Denies cough GI Denies abdominal pain and Denies heartburn Reports as per HPI and Denies change in libido Neuro Denies syncope Psych Denies change in libido Endo Denies change in libido Physical Exam Const General: cooperative, healthy appearing, comfortable and no acute distress Orientation/consciousness: patient oriented x3 HEENT Face and sinus: Yes normal facial exam Mouth: moist mucous membranes Neck Neck: Yes normal visual inspection, Yes full ROM and Yes trachea midline Chest Chest palpation & inspection: normal inspection of the chest Resp Effort & Inspection: normal respiratory effort, able to speak in complete sentences and no respiratory distress GI Inspection: Yes normal to inspection Back/Spine/Pelvis Cervical Spine: normal cervical lordosis Thoracic/Lumbar Spine: thoracic and lumbar spine normal to inspection Skin General skin exam: no rashes or lesions noted Neuro General: patient oriented x3, gait normal, tone normal and moves all extremities Extrem General: Yes normal to inspection and Yes capillary refill normal Results AMB Urinalysis, Automated UA Leukoctes 0 Joni/uL Last Edit by Debora Mckenzie MA on 03/07/25 16:19 UA Nitrite Negative Last Edit by Debora Mckenzie MA on 03/07/25 16:19 UA Urobilinogen 0.2 mg/dL Last Edit by Debora Mckenzie MA on 03/07/25 16:19 UA Protein 15 mg/dL Last Edit by Debora Mckenzie MA on 03/07/25 16:19 UA pH 5.5 Last Edit by Debora Mckenzie MA on 03/07/25 16:19 UA Blood 0 Mike/uL Last Edit by Debora Mckenzie MA on 03/07/25 16:19 UA Specific [place] 1.025 Last Edit by Debora Mckenzie MA on 03/07/25 16:19 UA Ketone Negative Last Edit by Debora Mckenzie MA on 03/07/25 16:19 UA Bilirubin 0 mg/dL Last Edit by Debora Mckenzie MA on 03/07/25 16:19 UA Glucose 0 mg/dL Last Edit by Debora Mckenzie MA on 03/07/25 16:19 Results Reviewed Results Reviewed: Laboratory Last Values Urine pH (Auto) 5.5 03/07/25 15:40 Specific [place] (Auto) 1.025 03/07/25 15:40 Urine Protein (Auto) 15 mg/dL 03/07/25 15:40 Glucose (UA)(Auto) 0 mg/dL 03/07/25 15:40 Urine Ketones (Auto) Negative 03/07/25 15:40 Urine Blood (Auto) 0 Mike/uL 03/07/25 15:40 Urine Nitrite (Auto) Negative 03/07/25 15:40 Urine Bilirubin (Auto) 0 mg/dL 03/07/25 15:40 Urine Urobilinogen (Auto) 0.2 mg/dL 03/07/25 15:40 Leukocyte Esterase (Auto) 0 Joni/uL 03/07/25 15:40 Assessment & Plan Assessment & Plan (1) BPH (benign prostatic hyperplasia): Code(s): N40.0 - Benign prostatic hyperplasia without lower urinary tract symptoms Category: Medical (2) Prostate cancer: Code(s): C61 - Malignant neoplasm of prostate Category: Medical Plan Six-month follow-up PSA Orders: Orders AMB Urinalysis Automated Today C61 - Malignant neoplasm of prostate, N40.0 - Benign prostatic hyperplasia without lower urinary tract symptoms PSA,Total (Free>4and<10) 6 Months C61 - Malignant neoplasm of prostate Patient Instructions: This note is constructed using voice recognition software. While every effort has been made to ensure accuracy water pollution control technician errors may have been included. Imaging studies, laboratory and physical exam results were discussed and reviewed in detail. No major barriers to patient understanding were identified. An opportunity to ask questions regarding the treatment plan was provided. All questions were answered. The patient expressed understanding and agreement with the above treatment plan. The patient is aware they should contact our office by phone for worsening of their current condition or the appearance of new urologic symptoms. Compliance is encouraged with any medications and followup testing that is ordered. It is a privilege to participate in the urologic care of your patient. If you have any questions or concerns regarding treatment for the above conditions, or other urologic issues, please do not hesitate to contact me. The office telephone contact is [phone]. Sincerely, Dr Eze Delgado MD, [facility] - Urology Compassionate Specialist Care for the Genitourinary System Coding Level of Care Code Est Pt Level 3 (13215) Complex EM visit Add On G2211 Diagnoses BPH (benign prostatic hyperplasia) N40.0 Prostate cancer C61
--- OUTSIDE RECORDS SUMMARY | 2025-03-07 15:19 | XMS_ITS | Patient Health Record ---
Author Organization [facility] Address [address] [place] [address] Care Team Providers Care Social Studies Department Chair Name Role Phone Rachel PARKINSON, Margarito Primary Care Provider Cody Hackett Unavailable [phone] Allergies No Known Allergies Reason For Referral [...] Celecoxib 200 MG TAKE 1 CAPSULE BY [facility] TWICE DAILY Oral for 90 Active Finasteride [...] Problem Status W/U Status Risk Notes Problem 903789835 Encounter for screening for malignant neoplasm of colon (Z12.11) Active confirmed Problem Screening for malignant neoplasm of rectum (525854795) Encounter for screening for malignant neoplasm of rectum (Z12.12) Active confirmed Problem 94004668 Abdominal pain, epigastric (R10.13) Active confirmed Problem 45647634 Heme + stool (R19.5) Active confirmed Problem 374221155 Irregular bowel habits (R19.8) Active confirmed Problem 501552303 Hx of adenomatou s colonic polyps (Z86.010) Active confirmed Problem 31269613 Diarrhea, unspecified type (R19.7) Active confirmed Problem 34489857 Irritable bowel syndrome with both constipation and diarrhea (K58.2) Active confirmed Problem 282190972 Villous adenoma of colon (D37.4) Active confirmed Problem Diverticulosis of colon (029270361) Diverticulosis of colon (K57.30) Active confirmed Problem 62714099 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) Active confirmed Problem Hx of [place] I I operation (Z98.0) Active confirmed Encounters Encounter Location Date Provider Diagnosis [facility] [address] [place] [address] 01/17/2025 Cody Israel Plan Of Treatment Pending Test Test Name Order Date XR ABD UPRIGHT AND CHEST 04/04/2020 STOOL WBC 04/04/2020 Future Test Test Name Order Date UPPER GI ENDOSCOPY 08/11/2016 COLONOSCOPY 08/11/2016 COLONOSCOPY 11/10/2016 COLONOSCOPY 09/08/2018 COLONOSCOPY 01/01/2023 Insurance Providers Payer Name Payer Address Payer Phone Subscriber Number Group Number Insured Name Patient Relationship to Insured Coverage Start Date Coverage End Date [facility] [place] [employer] [address] [place] [address] [id number] MARK ANTHONY RODRIGUEZ Self - patient is the insured Medical (General) History Medical History History ICD Code Denies VT,DM,CVA,Lung disease,renal dise ase BPH EGD in 09/2016-small [...]
--- OUTSIDE RECORDS SUMMARY | 2025-03-07 15:19 | XMS_ITS | Clinical Summary ---
Author Organization [facility] Address [address] [place] [address] Care Team Providers Care Event Staff Name Role Phone Unavailable Primary Care Provider [...]
== END 2025-03-07 15:40 | disposition home or self-care (01) ==
LOC: HO.HUSH 14:38
PROVIDERS: PCP Internal Medicine; Visit Provider Urology
DX: N40.0 Benign prostatic hyperplasia without lower urinary tract symptoms (principal); C61 Malignant neoplasm of prostate
CPT/HCPCS: 99213; G2211

== ENCOUNTER → 2025-03-07 14:38 | Outpatient (BNVA) | payer MEDICARE, SELFPAY | PROVIDERS: PCP Internal Medicine; Visit Provider Urology | DX: C61 Malignant neoplasm of prostate (principal); N40.0 Benign prostatic hyperplasia without lower urinary tract symptoms | CPT/HCPCS: 81003; 99212 ==